=== PATIENT | female | born 1960 | race Caucasian/White ===

== ENCOUNTER 2020-03-31 08:40 | Outpatient (REF) | payer BC, SELFPAY ==
--- NOTE | 2020-03-31 08:44 | MM_ITS ---
EXAMINATION: MM SCREENING DIGITAL BREAST TOMOSYNTHESIS, BILATERAL CLINICAL INFORMATION: Screening. Asymptomatic. The lifetime risk of breast cancer based on the Tyrer-Cuzick Model is 4.6%. COMPARISON: Mammography: March 26, 2019 and studies dating back to August 09, 2011 TECHNIQUE: Digital breast tomosynthesis is performed in both the craniocaudal and mediolateral oblique views along with computer-aided detection (CAD). Synthesized 2D images are generated from the tomosynthesis. FINDINGS: There are scattered areas of fibroglandular density (ACR BI-RADS breast composition Category b). There are no significant masses, abnormal calcifications, or other abnormalities. MM/MM tomosynthesis screening BI IMPRESSION: There are no significant changes from prior study. ASSESSMENT: BI-RADS 1: Negative RECOMMENDATION: Routine annual mammography screening. This patient's information was entered into a reminder system with a target due date for their next mammogram.
== END 2020-03-31 08:41 | disposition home or self-care (01) ==
LOC: HO.MAMMO 08:40
PROVIDERS: PCP Internal Medicine; Visit Provider Internal Medicine
DX: Z12.31 Encounter for screening mammogram for malignant neoplasm of breast (principal)
CPT/HCPCS: 77063; 77067

== ENCOUNTER → 2021-04-06 07:59 | Outpatient (BNVA) | payer BC, SELFPAY | PROVIDERS: Visit Provider Advanced Practice Midwife ==

== ENCOUNTER 2021-04-11 07:14 | Outpatient (REF) | payer BC, SELFPAY ==
--- NOTE | ~2021-04-11 | MM_ITS ---
EXAMINATION: MM SCREENING DIGITAL BREAST TOMOSYNTHESIS, BILATERAL CLINICAL INFORMATION: Screening. Asymptomatic. The lifetime risk of breast cancer based on the Tyrer-Cuzick Model is 6%. COMPARISON: Mammography: 03/31/2020, 03/26/2019, 03/22/2018 TECHNIQUE: Digital breast tomosynthesis is performed in both the craniocaudal and mediolateral oblique views along with computer-aided detection (CAD). Synthesized 2D images are generated from the tomosynthesis. FINDINGS: There are scattered areas of fibroglandular density (ACR BI-RADS breast composition Category b). There are no significant masses, abnormal calcifications, or other abnormalities. Breast tissue composition borders on predominantly fatty. No significant changes. MM/MM tomosynthesis screening BI IMPRESSION: No mammographic evidence of malignancy. ASSESSMENT: BI-RADS 1: Negative RECOMMENDATION: Routine annual mammography screening. This patient's information was entered into a reminder system with a target due date for their next mammogram.
== END 2021-04-11 07:15 | disposition home or self-care (01) ==
LOC: HO.MAMMO 07:14
PROVIDERS: Visit Provider Internal Medicine
DX: Z12.31 Encounter for screening mammogram for malignant neoplasm of breast (principal)
CPT/HCPCS: 77063; 77067

== ENCOUNTER 2021-10-17 09:49 | Outpatient (REF) | payer BC, SELFPAY ==
--- NOTE | ~2021-10-17 | XR_ITS ---
EXAMINATION: XR SHOULDER, RIGHT CLINICAL INFORMATION: Pain. COMPARISON: None TECHNIQUE: Three views of the right shoulder. FINDINGS: There is mild reduction in the AC joint space with periarticular inferior spurring. The glenohumeral joint space is normal. No visible acute fracture, dislocation seen. There is small superior acromial enthesophyte. XR/XR shoulder RT min 2V IMPRESSION: No acute fracture or dislocation. Moderate degenerative spurring AC joint and superior acromial enthesophyte.
== END 2021-10-17 09:50 | disposition home or self-care (01) ==
LOC: HO.HMGCX 09:49
PROVIDERS: PCP Internal Medicine; Visit Provider Physician Assistant
DX: M25.511 Pain in right shoulder (principal)
CPT/HCPCS: 73030

== ENCOUNTER 2022-04-12 08:32 | Outpatient (REF) | payer BC, SELFPAY ==
[2022-04-13 10:12] LABS: BV Int Neg Control Negative (Negative); BV Int Pos Control Positive (Positive)
== END 2022-04-12 08:33 | disposition home or self-care (01) ==
LOC: HO.LNP 08:32
PROVIDERS: Visit Provider Advanced Practice Midwife
DX: N89.8 Other specified noninflammatory disorders of vagina (principal)
CPT/HCPCS: 87480; 87510; 87660

== ENCOUNTER 2022-04-12 11:05 | Outpatient (REF) | payer BC, SELFPAY ==
[2022-04-12 14:10] LABS: MANUAL DIFF FLAG NO
[2022-04-12 14:21] LABS: Basophils Percent Auto 0.6 % (0-2); Eosinophils Absolute Auto 0.6 X10*3/uL (0.0-0.4); Hematocrit 40.3 % (37.0-47.0); Hemoglobin 12.9 g/dl (12.0-16.0); Imm Gran Abs Auto 0.01 X10*3/uL (0.00-0.03); Imm Gran Pct Auto 0.2 % (0.0-0.4); Lymphocytes Absolute Auto 1.6 X10*3/uL (1.2-4.9); Lymphocytes Percent Auto 26.4 % (20-40); Mean Corpuscular Hemoglobin 29.8 pg (27.0-33.0); Mean Corpuscular Volume 93.1 fL (80.0-98.0); Mean Platelet Volume 11.1 fL (9.4-12.3); Monocytes Absolute Auto 0.4 X10*3/uL (0.1-1.2); Monocytes Percent Auto 5.8 % (2-11); Neutrophils Absolute Auto 3.5 x10*3/uL (2.0-8.3); Platelet Count 243 X10*3/uL (160-400); Red Blood Count 4.33 X10*6/uL (4.20-5.50); Red Cell Distribution Width 12.9 % (11.0-16.0); White Blood Count 6.2 X10*3/uL (4.8-10.8)
[2022-04-12 14:43] LABS: Alanine Aminotransferase 13 U/L (0-31); Anion Gap 14 (12-20); Aspartate Amino Transferase 22 U/L (5-31); Blood Urea Nitrogen 20 mg/dL (9-16); Calcium 9.7 mg/dL (8.4-10.2); Carbon Dioxide 25 mmol/L (22-29); Chloride 107 mmol/L (96-108); Cholesterol 251 mg/dL; Estimated Glomerular Filt Rate > 60; Glucose Fasting 81 mg/dL (60-99); HDL Cholesterol 80 mg/dL; LDL Cholesterol Calculated 157 mg/dl; Potassium 4.6 mmol/L (3.3-5.1); Sodium 141 mmol/L (135-145); Triglycerides 73 mg/dL
[2022-04-12 15:36] LABS: Vitamin D 25-OH Total 38.9 ng/mL (>30)
== END 2022-04-12 11:06 | disposition home or self-care (01) ==
LOC: HO.HMGCLDS 11:05
PROVIDERS: PCP Internal Medicine; Visit Provider Internal Medicine
DX: Z00.01 Encounter for general adult medical examination with abnormal findings (principal); G40.209 Localization-related (focal) (partial) symptomatic epilepsy and epileptic syndromes with complex partial seizures, not intractable, without status epilepticus; L21.9 Seborrheic dermatitis, unspecified; R61 Generalized hyperhidrosis; Z78.0 Asymptomatic menopausal state
CPT/HCPCS: 36415; 80048; 80061; 82306; 84450; 84460; 85025

== ENCOUNTER 2022-04-19 07:23 | Outpatient (REF) | payer BC, SELFPAY ==
--- NOTE | ~2022-04-19 | MM_ITS ---
EXAMINATION: MM SCREENING DIGITAL BREAST TOMOSYNTHESIS, BILATERAL CLINICAL INFORMATION: Screening. Asymptomatic. The lifetime risk of breast cancer based on the Tyrer-Cuzick Model is 4%. COMPARISON: Mammography: 04/04/2021, 03/31/2020, 03/26/2019 TECHNIQUE: Digital breast tomosynthesis is performed in both the craniocaudal and mediolateral oblique views along with computer-aided detection (CAD). Synthesized 2D images are generated from the tomosynthesis. FINDINGS: There are scattered areas of fibroglandular density (ACR BI-RADS breast composition Category b). Breast tissue composition borders on predominantly fatty. There are no significant masses, abnormal calcifications, or other abnormalities. Background stromal and fibroglandular densities are stable. No developing density. No skin changes. MM/MM tomosynthesis screening BI IMPRESSION: No mammographic evidence of malignancy. ASSESSMENT: BI-RADS 1: Negative RECOMMENDATION: Routine annual mammography screening. This patient's information was entered into a reminder system with a target due date for their next mammogram.
== END 2022-04-19 07:24 | disposition home or self-care (01) ==
LOC: HO.MAMMO 07:23
PROVIDERS: PCP Internal Medicine; Visit Provider Internal Medicine
DX: Z12.31 Encounter for screening mammogram for malignant neoplasm of breast (principal)
CPT/HCPCS: 77063; 77067

== ENCOUNTER 2022-07-03 08:00 | Outpatient (RCR) | payer BC, SELFPAY ==
--- NOTE | 2022-05-04 09:49 | MHC.PT.EP ---
[facility] [place] Office [place] Office [place] Office [address] Karri Howe [address] [phone] F: [phone] F: [phone] F: [phone] F: [phone] Physical Therapy Plan of Care Date of Evaluation: Date of Surgery: Diagnosis: R Shoulder Pain Assessment: Pt is a 62 y/o female referred to PT for eval and treat of R shoulder pain resulting in decreased tolerance for reaching high shelves, carrying serving trays, dressing pullovers carrying objects of weight and laying on her L side secondary to mild decreased L shoulder ROM, decreased L shoulder strength, decreased scapular posture, and pain. Pt is deemed an appropriate candidate to receive skilled PT services to address their physical impairments in order to improve thier functional ability. Frequency and Duration: The patient will be seen 2 / wk x 4 wks. Short Term Goals: Initiate HEP. Improve baseline pain with activity from 7/10 to < 4/10. 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 Pt will Reports dressing pullovers no longer difficult; initial 3/10. Pt will be able to place objects on a high shelf without pain; initial: 3/10. Improve R shoulder flexion and ER MMT by alt least 1/2 MMT; initial: ER and flexion MT 4/5. Pt will no longer be painful with IR MMT. Treatment Plan: Modalities to reduce pain, spasms and effusion. Manual therapy to restore motion and function. Therapeutic exercise to improve strength and flexibility. Neuromuscular re-education for posture and balance. Therapeutic activities to return to functional activities of daily living. Electronically signed by: Hieu Reyez PT. Please sign and return to therapist. Thank you for your referral.
--- NOTE | 2022-07-03 09:07 | MHC.PT.DC ---
[facility] [place] Office [place] Office [place] Office [address] Karri Howe [address] [phone] F: [phone] F: [phone] F: [phone] F: [phone] Physical Therapy Discharge Report Diagnosis: R Shoulder Pain Date of Surgery: Date of Evaluation: 05/04/22 Date of Discharge: 07/03/22 Treatments to Date: 10 Cancellations to Date: No Shows to Date: Discharge Status: Achieved Goals Improved Function Independent with HEP Discharge Summary: 07/03/22: Lauren has been an active and motivated participant in her therapy in and out of the clinic. We are in agreement with DC today ahe she has met her therapeutic goals, is improved of her function, abolished of her pain, and she is I with her home program. outcome measure SPADI improved from 38% to 0% pain/disability. Electronically signed by: Hieu Reyez PT. Please sign and return to therapist. Thank you for your referral.
== END 2022-07-03 09:08 | disposition home or self-care (01) ==
LOC: HO.PTCHIC 08:00
PROVIDERS: PCP Internal Medicine; Visit Provider Internal Medicine
DX: M25.511 Pain in right shoulder (principal)
CPT/HCPCS: 97110; 97161; 97530

== ENCOUNTER 2022-10-03 09:17 | Outpatient (REF) | payer BC, SELFPAY ==
[2022-10-04 12:35] LABS: BV Int Neg Control Negative (Negative); BV Int Pos Control Positive (Positive)
== END 2022-10-03 09:18 | disposition home or self-care (01) ==
LOC: HO.LAB 09:17
PROVIDERS: PCP Internal Medicine; Visit Provider Advanced Practice Midwife
DX: N89.8 Other specified noninflammatory disorders of vagina (principal)
CPT/HCPCS: 87480; 87510; 87660

== ENCOUNTER 2022-10-18 09:06 | Outpatient (REF) | payer BC, SELFPAY | END 2022-10-18 09:07 | disposition home or self-care (01) | LOC: HO.LAB 09:06 | PROVIDERS: PCP Internal Medicine; Visit Provider Advanced Practice Midwife | DX: N89.8 Other specified noninflammatory disorders of vagina (principal); N94.9 Unspecified condition associated with female genital organs and menstrual cycle | CPT/HCPCS: 87070; 87102; 87147; 87205 ==

== ENCOUNTER → 2022-10-25 12:42 | Outpatient (BNVA) | payer BC, SELFPAY | PROVIDERS: PCP Internal Medicine; Visit Provider Advanced Practice Midwife ==

== ENCOUNTER 2023-03-26 07:17 | Outpatient (AMB) | payer BC, SELFPAY ==
--- NOTE | 2023-03-26 07:35 | A.OFFVIS_ITS ---
Intake Vital Signs 03/26/23 07:37 Height 5 ft 4 in Weight 124 lb BMI 21.3 BP 100/55 L Blood Pressure Location Lt brachial Position Sitting Pulse 62 Intake Visit Reasons: Colonoscopy Screening Intake Note: Patient new consult for 2nd pre colonoscopy screening. Patient denies any GI issues. 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 Accompanied by: Self / Same As Patient Allergies Codeine Phosphate Allergy (Mild, Uncoded 10/25/22 12:43) Itching sulfate Adverse Reaction (Mild, Uncoded 10/25/22 12:43) Itching Medication List - Last Reconciled 03/26/23 by Evelyn Palomares PA-C albuterol sulfate 90 mcg/actuation 2 puffs inhalation Q6-8H PRN aluminum chloride 20% (Drysol Dab-O-Matic) 1 appl topical 2XW betamethasone dipropionate 0.05% 1 appl topical BID PRN 10 days betamethasone, augmented 0.05 % 1 appl topical BID PRN 7 days ibuprofen 800 mg PO Q8H PRN oxcarbazepine mg PO HPI HPI Comments History of Present Illness Details A 63 y/o referred for screening colonoscopy- No GI complaints Normal bowels Appetite is good No family history GI cancers No N/V/D abdominal pain - fever or chills PFSH Medical History (Updated 03/26/23 @ 08:20 by Evelyn Palomares PA-C) Right anterior shoulder pain Seborrheic dermatitis Hyperhidrosis Complex partial seizure disorder Annual visit for general adult medical examination with abnormal findings Hx of partial seizures Surgical History History of intraocular lens implant Hx of tonsillectomy Family History Mother Diabetes HTN (hypertension) Father Diabetes Sister Diabetes Mental health disorder Daughter Mental health disorder Social History Household Members: Spouse Housing: House Alcohol intake: current Alcohol intake frequency: a few times a month Patient Tobacco Use Status: Former Tobacco user Years Smoked: 15 e-Cigarette/Vaping Use: Never Used service: No Current occupational status: employed 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 Sexual orientation: Straight/Heterosexual Gender identity: Female Cognitive needs: No Hearing needs: No Vision needs: No Female Reproductive History Menstrual Age of Menarche: 15 Review of Systems Const All systems reviewed & are unremarkable except as noted in HPI and below Card Denies chest pain and Denies dyspnea Resp Denies dyspnea Physical Exam Vital Signs: Last Vital Signs Pulse 62 03/26/23 07:37 BP 100/55 L 03/26/23 07:37 BMI result Body Mass Index 21.3 Const General: cooperative, healthy appearing, comfortable and no acute distress Orientation/consciousness: patient oriented x3 Limitations: no limitations Eyes Sclerae: sclerae normal Resp Effort & Inspection: normal respiratory effort and able to speak in complete sentences Auscultation: clear to auscultation bilaterally, no rales, no rhonchi and no wheezes Cardio Rate: regular rate Rhythm: regular rhythm Heart sounds: S1 normal heart sound present and S2 normal heart sound present GI Palpation (GI): Soft to palpation and nontender Auscultation: normal bowel sounds Skin General skin exam: no rashes or lesions noted Neuro General: patient oriented x3 Extrem General: Yes full ROM Psych Appearance: grossly normal and well kempt Mental Status: mental status grossly normal Speech and movement: Normal speech and movement present and Clear speech present Affect: normal affect Attitude: cooperative Thought process: Normal thought process present Thought content: Normal thought content present Insight: Good insight present (Psych) Judgement: Good judgement present (Psych) Assessment & Plan Assessment & Plan (1) Encounter for screening colonoscopy: Comment: last colonoscopy-no polyps no fam hx-crc Code(s): Z12.11 - Encounter for screening for malignant neoplasm of colon Plan screening-colonoscopy Orders: Orders Colonoscopy - GI Use Only Today Z12.11 - Encounter for screening for malignant neoplasm of colon Medications: New bisacodyl (Dulcolax (bisacodyl)) Day before procedure, prep day Take 4 tablets by mouth upon awakening followed by large glass of water 20 mg (4 x 5 mg) PO ONCE 1 day 4 tabs 0RF colonoscopy prep Z12.11 - Encounter for screening for malignant neoplasm of colon polyethylene glycol 3350 (Miralax) Take as directed by mouth the day before your procedure. 238 grams PO ONCE 1 day PRN 238 grams 0RF laxative effect polyethylene glycol 3350 (Miralax) Take as directed by mouth the day before your procedure. 238 grams PO ONCE 1 day PRN 238 grams 0RF laxative effect bisacodyl (Dulcolax (bisacodyl)) Day before procedure, prep day Take 4 tablets by mouth upon awakening followed by large glass of water 20 mg (4 x 5 mg) PO ONCE 1 day 4 tabs 0RF colonoscopy prep Z12.11 - Encounter for screening for malignant neoplasm of colon Patient Instructions: Screening colonoscopy- MG prep Call with concerns Coding Level of Care Code New Pt Level 3 (12558) Diagnoses Encounter for screening colonoscopy Z12.11 Time Spent (min) 20
[2023-03-26 07:37] VITALS: BP 100/55; PULSE 62; BMI 21.3
== END 2023-03-26 08:31 | disposition home or self-care (01) ==
PROVIDERS: PCP Internal Medicine; Visit Provider Physician Assistant
DX: Z12.11 Encounter for screening for malignant neoplasm of colon (principal); Z01.818 Encounter for other preprocedural examination
CPT/HCPCS: S0285

== ENCOUNTER → 2023-03-26 07:17 | Outpatient (BNVA) | payer BC, SELFPAY | PROVIDERS: PCP Internal Medicine; Visit Provider Physician Assistant ==

== ENCOUNTER 2023-04-25 07:31 | Outpatient (REF) | payer BC, SELFPAY | END 2023-04-25 07:32 | disposition home or self-care (01) | LOC: HO.MAMMO 07:31 | PROVIDERS: PCP Internal Medicine; Visit Provider Internal Medicine | DX: Z12.31 Encounter for screening mammogram for malignant neoplasm of breast (principal) | CPT/HCPCS: 77063; 77067 ==

== ENCOUNTER → 2023-04-25 07:45 | Outpatient (BNV) | payer BC, SELFPAY | PROVIDERS: PCP Internal Medicine; Visit Provider Radiology Diagnostic Radiology | DX: Z12.31 Encounter for screening mammogram for malignant neoplasm of breast (principal) | CPT/HCPCS: 77063; 77067 ==

== ENCOUNTER 2023-04-25 10:24 | Outpatient (AMB) | payer BC, SELFPAY ==
[2023-04-25 11:46] VITALS: BP 102/74; PULSE 71; O2SAT 99; BMI 22.0
--- NOTE | 2023-04-25 11:46 | MHC.PC.OV ---
Vital Signs 04/25/23 11:46 Height 5 ft 4 in Weight 128 lb 2 oz BMI 22.0 BP 102/74 Blood Pressure Location Lt brachial Position Sitting Pulse 71 Pulse Source Pulse Oximeter Pulse Oximetry (%) 99 Oxygen Delivery Method Room Air Intake Visit Reasons: Annual PE Intake Note: pt is here for her Annual PE pt wants flu vaccine Allergies Codeine Phosphate Allergy (Mild, Uncoded 04/25/23 12:04) Itching sulfate Adverse Reaction (Mild, Uncoded 04/25/23 12:04) Itching Medication List - Last Reconciled 04/25/23 by Leah Fuentes MD albuterol sulfate 90 mcg/actuation 2 puffs inhalation Q6-8H PRN aluminum chloride 20% (Drysol Dab-O-Matic) 1 appl topical 2XW betamethasone dipropionate 0.05% 1 appl topical BID PRN 10 days betamethasone, augmented 0.05 % 1 appl topical BID PRN 7 days bisacodyl (Dulcolax (bisacodyl)) 20 mg (4 x 5 mg) PO ONCE 1 day bisacodyl (Dulcolax (bisacodyl)) 20 mg (4 x 5 mg) PO ONCE 1 day ibuprofen 800 mg PO Q8H PRN oxcarbazepine mg PO polyethylene glycol 3350 (Miralax) 238 grams PO ONCE PRN 1 day polyethylene glycol 3350 (Miralax) 238 grams PO ONCE PRN 1 day Tobacco use date assessed: 04/25/23 Dental Screening Dental Screen Date: 04/25/23 Did you have a dental visit in the last 12 months?: Yes Did you have a dental problem in the last 6 months where you did not have access to dental care?: No Was dental information given to patient?: Patient has dentist [facility] Medical History (Updated 04/25/23 @ 12:13 by Leah Fuentes MD) Hyperlipidemia Right anterior shoulder pain Seborrheic dermatitis Hyperhidrosis Complex partial seizure disorder Annual visit for general adult medical examination with abnormal findings Hx of partial seizures Surgical History (Updated 04/25/23 @ 12:08 by Leah Fuentes MD) History of intraocular lens implant Hx of tonsillectomy Family History Mother Diabetes HTN (hypertension) Father Diabetes Sister Diabetes Mental health disorder Daughter Mental health disorder Social History Household Members: Spouse Housing: House Alcohol intake: current Alcohol intake frequency: a few times a month Patient Tobacco Use Status: Former Tobacco user Years Smoked: 15 e-Cigarette/Vaping Use: Never Used service: No Current occupational status: employed 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 Abdirizak Flaherty, Marilee Borrego, Parrish Potter and colleagues, with an educational leonid from [employer]. Review of Systems Eyes Details: Sees [facility] for her routine eye exam Reports no additional complaints Physical exam (Primary Care) Vital Signs: Last Vital Signs Pulse 71 04/25/23 11:46 BP 102/74 04/25/23 11:46 Pulse Ox 99 04/25/23 11:46 Oxygen Delivery Method Room Air 04/25/23 11:46 BMI result Body Mass Index 22.0 Tobacco/Smoking Status: Tobacco use Status Tobacco use date assessed 04/25/23 04/25/23 11:52 Patient Tobacco Use Status Former Tobacco user 04/25/23 11:46 e-Cigarette/Vaping Use Never Used 04/25/23 11:46 Thrive Assessment: Date of Thrive Assessment Date Thrive assessed 04/12/22 04/25/23 11:46 Office Procedures Flu Questionnaire Does the patient have a severe egg allergy?: No Does the patient have severe life threatening allergies?: No Does the patient have a fever or illness today?: No Has the patient ever had Guillain-[place] Syndrome?: No Has the patient ever had any past reaction to a flu shot?: No Immunizations flu vacc [id number] 6mos up(PF) 60 mcg(15 mcgx4)/0.5 mL IM syringe Performing Provider: Leah Fuentes MD Performing Location: [facility] Administered by: Gale Mejia CMA on 04/25/23 12:09 Dose Route Admin Location Dispensed Lot Number Expiration Date NDC Sander Operator 0.5 mL IM Left Deltoid 0.5 mL [id number] 11/25/23 32605-404-13 MedTest DX VIS Given Date VIS Provided VIS Publication Date 04/25/23 Single Vaccine 20 Eligibility Eligibility Date Funding Source Not [facility] Eligible 04/25/23 Private Assessment and Plan Assessment & Plan (1) Complex partial seizure disorder: Code(s): G40.209 - Localization-related (focal) (partial) symptomatic epilepsy and epileptic syndromes with complex partial seizures, not intractable, without status epilepticus (2) Annual visit for general adult medical examination with abnormal findings: Code(s): Z00.01 - Encounter for general adult medical examination with abnormal findings (3) Seborrheic dermatitis: Code(s): L21.9 - Seborrheic dermatitis, unspecified (4) Hyperhidrosis: Code(s): R61 - Generalized hyperhidrosis (5) Hyperlipidemia: Code(s): E78.5 - Hyperlipidemia, unspecified Orders: Orders Influenza [id number] Immunization Today Z23 - Encounter for immunization Alanine Aminotransferase Today E78.5 - Hyperlipidemia, unspecified, G40.209 - Localization-related (focal) (partial) symptomatic epilepsy and epileptic syndromes with complex partial seizures, not intractable, without status epilepticus, L21.9 - Seborrheic dermatitis, unspecified, R61 - Generalized hyperhidrosis, Z00.01 - Encounter for general adult medical examination with abnormal findings Aspartate Amino Transferase Today E78.5 - Hyperlipidemia, unspecified, G40.209 - Localization-related (focal) (partial) symptomatic epilepsy and epileptic syndromes with complex partial seizures, not intractable, without status epilepticus, L21.9 - Seborrheic dermatitis, unspecified, R61 - Generalized hyperhidrosis, Z00.01 - Encounter for general adult medical examination with abnormal findings Lipid Panel Today E78.5 - Hyperlipidemia, unspecified, G40.209 - Localization-related (focal) (partial) symptomatic epilepsy and epileptic syndromes with complex partial seizures, not intractable, without status epilepticus, L21.9 - Seborrheic dermatitis, unspecified, R61 - Generalized hyperhidrosis, Z00.01 - Encounter for general adult medical examination with abnormal findings Glucose Fasting Today E78.5 - Hyperlipidemia, unspecified, G40.209 - Localization-related (focal) (partial) symptomatic epilepsy and epileptic syndromes with complex partial seizures, not intractable, without status epilepticus, L21.9 - Seborrheic dermatitis, unspecified, R61 - Generalized hyperhidrosis, Z00.01 - Encounter for general adult medical examination with abnormal findings Vitamin D 25-OH Total Today E78.5 - Hyperlipidemia, unspecified, G40.209 - Localization-related (focal) (partial) symptomatic epilepsy and epileptic syndromes with complex partial seizures, not intractable, without status epilepticus, L21.9 - Seborrheic dermatitis, unspecified, R61 - Generalized hyperhidrosis, Z00.01 - Encounter for general adult medical examination with abnormal findings Medications: New betamethasone dipropionate 0.05% 1 appl topical DAILY PRN 60 mL 0RF scalp irritation Refilled betamethasone dipropionate 0.05% 1 appl topical BID PRN 45 grams 0RF rash 10 days aluminum chloride 20% (Drysol Dab-O-Matic) 1 appl topical 2XW 60 mL 2RF ibuprofen PRN for pain 800 mg PO Q8H PRN 90 tabs 0RF pain Coding Level of Care Code Est Pt Prev Care 40-64y(94731) Diagnoses Complex partial seizure disorder G40.209 Annual visit for general adult medical examination with abnormal findings Z00.01 Seborrheic dermatitis L21.9 Hyperhidrosis R61 Hyperlipidemia E78.5
== END 2023-04-25 12:22 | disposition home or self-care (01) ==
PROVIDERS: Visit Provider Internal Medicine
DX: Z23 Encounter for immunization (principal)
CPT/HCPCS: 90471; 90686

== ENCOUNTER 2023-04-25 12:23 | Outpatient (REF) | payer BC, SELFPAY ==
[2023-04-25 14:21] LABS: Alanine Aminotransferase 15 U/L (0-31); Aspartate Amino Transferase 22 U/L (5-31); Cholesterol 229 mg/dL (<200); Glucose Fasting 77 mg/dL (60-99); HDL Cholesterol 86 mg/dL (>40); LDL Cholesterol Calculated 128 mg/dL (<100); Triglycerides 79 mg/dL (<150)
[2023-04-25 14:22] LABS: Vitamin D 25-OH Total 38.4 ng/mL (>30)
== END 2023-04-25 12:24 | disposition home or self-care (01) ==
LOC: HO.HMGCLDS 12:23
PROVIDERS: PCP Internal Medicine; Visit Provider Internal Medicine
DX: Z00.01 Encounter for general adult medical examination with abnormal findings (principal); G40.209 Localization-related (focal) (partial) symptomatic epilepsy and epileptic syndromes with complex partial seizures, not intractable, without status epilepticus; R61 Generalized hyperhidrosis; E78.5 Hyperlipidemia, unspecified; L21.9 Seborrheic dermatitis, unspecified
CPT/HCPCS: 36415; 80061; 82306; 82947; 84450; 84460

== ENCOUNTER 2023-08-01 10:45 | Day surgery (SDC) | payer BC, SELFPAY ==
--- NOTE | 2023-07-31 09:59 | HO.ANESPROP2 ---
Documented by User: Marilee Moulton NP 07/31/23 10:00 HPI - Anesthesia Eval Consult details Narrative: 63yo F for Colonoscopy PMFSH Active Problems Active Problems: All Active Problems (Updated 04/25/23 @ 12:13 by Leah Fuentes MD) Hyperlipidemia (Acute) Encounter for screening colonoscopy (Acute) Right anterior shoulder pain (Acute) Seborrheic dermatitis (Acute) Hyperhidrosis (Acute) Complex partial seizure disorder (Acute) Annual visit for general adult medical examination with abnormal findings (Acute) Past Medical History Medical History (Updated 08/01/23 @ 12:49 by Jelena Alanis RN) Hyperlipidemia Right anterior shoulder pain Seborrheic dermatitis Hyperhidrosis Complex partial seizure disorder Annual visit for general adult medical examination with abnormal findings Hx of partial seizures Family History Family History Mother Diabetes HTN (hypertension) Father Diabetes Sister Diabetes Mental health disorder Daughter Mental health disorder Surgical History Surgical History (Updated 04/25/23 @ 12:08 by Leah Fuentes MD) History of intraocular lens implant Hx of tonsillectomy Social History Social History Household Members: Spouse Housing: House Alcohol intake: current Alcohol intake frequency: holidays/special occasions only Patient Tobacco Use Status: Former Tobacco user Years Smoked: 15 e-Cigarette/Vaping Use: Never Used Use of substances other than those prescribed or required for medical reasons: No Are you DNR?: No Advance Directives: No Advance Directives Information Provided: Yes service: No Current occupational status: employed 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 Sexual orientation: Straight/Heterosexual Gender identity: Female Cognitive needs: No Hearing needs: No Vision needs: No Meds Allergies Allergy/AdvReac Type Severity Reaction Status Date / Time Codeine Phosphate Allergy Mild Itching Uncoded 04/25/23 12:04 sulfate AdvReac Mild Itching Uncoded 04/25/23 12:04 Home Medications Medication Instructions Recorded Confirmed Last Taken Type oxcarbazepine 150 mg tablet mg PO 03/31/20 04/25/23 08/01/23 History Assessment and Plan Assessment Anesthesia Assessment: Chart Reviewed Documented by User: Mercy Le MD 08/01/23 12:56 PMFSH Past Medical History Medical History (Updated 08/01/23 @ 12:49 by Jelena Alanis RN) Hyperlipidemia Right anterior shoulder pain Seborrheic dermatitis Hyperhidrosis Complex partial seizure disorder Annual visit for general adult medical examination with abnormal findings Hx of partial seizures Family History Family History Mother Diabetes HTN (hypertension) Father Diabetes Sister Diabetes Mental health disorder Daughter Mental health disorder Family history of problems with anesthesia: No Surgical History Surgical History (Updated 04/25/23 @ 12:08 by Leah Fuentes MD) History of intraocular lens implant Hx of tonsillectomy History of Problems with Anesthesia: No Social History Social History Household Members: Spouse Housing: House Alcohol intake: current Alcohol intake frequency: holidays/special occasions only Patient Tobacco Use Status: Former Tobacco user Years Smoked: 15 e-Cigarette/Vaping Use: Never Used Use of substances other than those prescribed or required for medical reasons: No Are you DNR?: No Advance Directives: No Advance Directives Information Provided: Yes service: No Current occupational status: employed 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 Sexual orientation: Straight/Heterosexual Gender identity: Female Cognitive needs: No Hearing needs: No Vision needs: No Meds Allergies Allergy/AdvReac Type Severity Reaction Status Date / Time Codeine Phosphate Allergy Mild Itching Uncoded 04/25/23 12:04 sulfate AdvReac Mild Itching Uncoded 04/25/23 12:04 Home Medications Medication Instructions Recorded Confirmed Last Taken Type oxcarbazepine 150 mg tablet mg PO 03/31/20 04/25/23 08/01/23 History Exam Airway Mallampati Class: II TM Dist: >3cm Neck ROM: Full Heart: rrr Lungs: cta Assessment and Plan Assessment Anesthesia Assessment: Anesthesia Plan Discussed Final Anesthetic Review Family History of Problems with Anesthesia: No History of Problems with Anesthesia: No NPO: Yes ASA Class: II Final Preanesthetic Review: No Changes in Pt Med Stat, Meds/Allgs Chart Reviewed and Consent Obtained/Reviewed Patient Risk: Low Procedure Risk: Low Anesthetic Plan Anesthetic Plan: MAC: Disposition: Standard PACU
[2023-08-01 12:50] VITALS: BMI 21.5
[2023-08-01 12:59] VITALS: BP 118/70; PULSE 58; RESP 16; TEMP 37; O2SAT 98
--- NOTE | 2023-08-01 12:59 | MHC.SHP ---
Pre-Procedural Eval Section A - 24 Hr Update-Section A only Date of Service: 08/01/23 Section B - Complete if H&P > 30 days Chief Complaint: screening Relevant Family History (Specify if Yes): No Relevant Social History: None Present Medications: see Short Stay Collaborative assessment Medical History: Significant History (Hyperlipidemia Right anterior shoulder pain Seborrheic dermatitis Hyperhidrosis Complex partial seizure disorder Annual visit for general adult medical examination with abnormal findings Hx of partial seizures) History of Previous Operations: Relevant previous surgery/procedure and date(s) (History of intraocular lens implant Hx of tonsillectomy) Allergies: Allergies Allergy/AdvReac Type Severity Reaction Status Date / Time Codeine Phosphate Allergy Mild Itching Uncoded 04/25/23 12:04 sulfate AdvReac Mild Itching Uncoded 04/25/23 12:04 Review of Systems Sugical H&P ROS: Negative: Constitution, Cardiovascular, Respiratory, Neurological, Psychiatric, Hem-Onc, Allergic/Immunologic, Gastrointestinal, Genitourinary, Musculoskeletal, Integumentary, Endocrine and Eyes/Ears/Nose/Throat Exam Surgical H&P Exam: Normal: HEENT, Normal: Heart, Normal: Lungs, Normal: Extremities, Normal: Abdomen, Normal: Skin and Normal: Neurological Plan Diagnosis/Plan: Unchanged I have reviewed the history and physical and performed a pertinent physical examination on my patient. No changes have occurred unless specified. Time Spent With Patient Time: Total time managing care of this patient today ____ minutes.
[2023-08-01] MEDS: Lactated Ringers 1,000 ML 100 ML IVCONT (13:11)
[2023-08-01 13:50] VITALS: BP 93/53; PULSE 70; RESP 16; TEMP 36.2; O2SAT 95
[2023-08-01 14:05] VITALS: BP 98/61; PULSE 58; RESP 16; O2SAT 97
[2023-08-01 14:20] VITALS: BP 103/59; PULSE 50; RESP 16; TEMP 36.3; O2SAT 98
--- NOTE | 2023-08-10 14:43 | W.PM.OPN ---
Operative Note Operative Note Date of Service: 08/01/23 Narrative: Operative Information Procedure Description: Colonoscopy Indication: screening Anesthesia: MAC COLONOSCOPY Instrument: Olympus variable stiffness pediatric scope 190L Colonoscopy Monitoring: Vital signs and clinical assessment, continuous EKG monitoring, Pulse oximetry, Carbon Dioxide monitoring and blood pressure monitoring were done throughout the procedure. Colon withdrawal time was 7 minutes. Procedure: The patient was placed in the left lateral decubitis position and pre-procedure medications were administered. After a digital rectal examination of the ano-rectum, the video colonoscope was inserted into the rectum and advanced through the colon to the cecum/TI. The colonoscope was slowly withdrawn in a retrograde panoramic fashion and the colon mucosa was carefully examined including a retroflexed view of the rectum. Findings and interventions are described below. Procedure Difficulty: easy Findings: Terminal Ileum-normal Cecum:normal Ascending Colon: normal Transverse Colon -normal Descending Colon:normal Sigmoid Colon: normal Rectum: Retroflexion with small internal hemorrhoids seen, grade I Anorectum - normal Intervention: none Colon preparation: [place] Bowel Preparation Scale Right colon; 2 Transverse colon: 2 Left colon; 2 (0 = Unprepared colon segment with mucosa not seen due to solid stool that cannot be cleared. 1 = Portion of mucosa of the colon segment seen, but other areas of the colon segment not well seen due to staining, residual stool and/or opaque liquid. 2 = Minor amount of residual staining, small fragments of stool and/or opaque liquid, but mucosa of colon segment seen well. 3 = Entire mucosa of colon segment seen well with no residual staining, small fragments of stool or opaque liquid) Impression and Post Procedure Diagnosis: internal hemorrhoids Plan: High fiber diet leaflet Avoid straining at stool, epsom salts and sitz bath, anusol supps or cream Repeat Colonoscopy in 10 years or earlier if clinically indicated Above findings were reviewed with the patient and relevant handouts were provided if indicated.
== END 2023-08-01 15:30 | disposition home or self-care (01) ==
PROVIDERS: PCP Internal Medicine; Visit Provider Internal Medicine Gastroenterology
PROC: 0DJD8ZZ Inspection of Lower Intestinal Tract, Via Natural or Artificial Opening Endoscopic (ICD-10-PCS; CPT 45378; principal; 2023-08-01 13:00)
DX: Z12.11 Encounter for screening for malignant neoplasm of colon (principal); K64.0 First degree hemorrhoids; E78.5 Hyperlipidemia, unspecified; G40.209 Localization-related (focal) (partial) symptomatic epilepsy and epileptic syndromes with complex partial seizures, not intractable, without status epilepticus; Z87.891 Personal history of nicotine dependence
CPT/HCPCS: 45378

== ENCOUNTER → 2023-08-01 10:45 | Outpatient (BNV) | payer BC, SELFPAY | PROVIDERS: PCP Internal Medicine; Visit Provider Internal Medicine Gastroenterology | DX: Z12.11 Encounter for screening for malignant neoplasm of colon (principal); K64.0 First degree hemorrhoids | CPT/HCPCS: 45378 ==

== ENCOUNTER 2023-08-22 13:50 | Outpatient (REF) | payer BC, SELFPAY ==
[2023-08-28 21:14] LABS: HPV mRNA E6/E7 rflx Not Detected (Not Detected)
== END 2023-08-22 13:51 | disposition home or self-care (01) ==
LOC: HO.LNP 13:50
PROVIDERS: PCP Internal Medicine; Visit Provider Advanced Practice Midwife
DX: Z01.419 Encounter for gynecological examination (general) (routine) without abnormal findings (principal); Z11.51 Encounter for screening for human papillomavirus (HPV)
CPT/HCPCS: 87624; 88142

== ENCOUNTER 2023-08-22 13:50 | Outpatient (AMB) | payer BC, SELFPAY ==
--- NOTE | 2023-08-22 13:56 | MHC.OFFVIS ---
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 She is doing well with no concerns. Attempting to eat a healthy diet with calcium and vitamin D and stays active with exercise. Currently occasional sexually active. Denies any vaginal irritation. Uses a small amount of Vaseline externally for dryness has discontinued the Replens. Last pap smear; 2017. Last mammogram; 2022. Colonoscopy is UTD. Denies any family history of breast, ovarian or colon cancer. [facility] Medical History Hyperlipidemia Right anterior shoulder pain Seborrheic dermatitis Hyperhidrosis Complex partial seizure disorder Annual visit for general adult medical examination with abnormal findings Hx of partial seizures Surgical History History of intraocular lens implant Hx of tonsillectomy Family History Mother Diabetes HTN (hypertension) Father Diabetes Sister Diabetes Mental health disorder Daughter Mental health disorder Social History Household Members: Spouse Housing: House Alcohol intake: current Alcohol intake frequency: holidays/special occasions only Patient Tobacco Use Status: Former Tobacco user Years Smoked: 15 e-Cigarette/Vaping Use: Never Used service: No Current occupational status: employed 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 Sexual orientation: Straight/Heterosexual Gender identity: Female Cognitive needs: No Hearing needs: No Vision needs: No Female Reproductive History Menstrual Age of Menarche: 15 Total pregnancies: 1 Full term: 1 Number of Living Children: 1 Date of last pap smear: 01/15/18 (neg pap and hpv) Date of Mammogram: 04/25/23 (Birad 1) Review of Systems Const All systems reviewed & are unremarkable except as noted in HPI and below Reports as per HPI Eyes Reports no additional complaints ENT Reports no additional complaints Card Reports no additional complaints Resp Reports no additional complaints GI Reports as per HPI and Reports no additional complaints Reports as per HPI Musc Reports no additional complaints Skin/Breast Reports as per HPI Neuro Reports no additional complaints Psych Reports no additional complaints Endo Reports no additional complaints Casimiro/Lymph Reports no additional complaints Aller/Immun Reports no additional complaints Physical Exam Vital Signs: Last Vital Signs BP 102/62 08/22/23 13:57 BMI result Body Mass Index 21.6 Const General: cooperative, healthy appearing, no acute distress, well developed and alert Orientation/consciousness: patient oriented x3 HEENT Head: Yes normal to inspection Eyes General: appearance normal, both eyes and all related structures Neck Neck: Yes normal visual inspection Thyroid: Thyroid normal Chest Chest palpation & inspection: normal inspection of the chest and other (no puckering, dimpling, peau de orange, retraction, discharge, masses) Breast/axilla inspection: normal inspection of the breasts Breast/axilla palpation: normal palpation of the breasts Resp Effort & Inspection: normal respiratory effort GI Inspection: Yes normal to inspection Palpation (GI): Soft to palpation Rectal Exam - Female: deferred General: Yes bladder normal to palpation External Female Exam: normal external appearance and normal appearance of the urethra Speculum Exam - Vagina: normal appearance of the vagina, normal palpation, normal vaginal discharge and vagina atrophic Speculum Exam - Cervix: normal appearance of the cervix, normal palpation and Other cervical findings present (Bled slightly with Pap) Bimanual exam- vagina & uterus: normal bimanual exam, normal palpation, uterine size normal, bladder normal to palpation, normal palpation and non-tender Bimanual Exam- Adnexa, other: no masses Skin General skin exam: no rashes or lesions noted Rashes: no rashes Neuro General: patient oriented x3 Cognition (Neuro): normal cognition Extrem General: Yes normal to inspection Psych Attitude: cooperative Thought process: Normal thought process present Assessment & Plan Assessment & Plan (1) Encounter for well woman exam with routine gynecological exam: Code(s): Z01.419 - Encounter for gynecological examination (general) (routine) without abnormal findings Plan Discussed: Current recommendations for pap smears per ASCCP guidelines. Breast awareness, periodic self breast exams and yearly mammogram. Maintain a healthy lifestyle, well balanced diet including Calcium 1,200 mg and Vitamin D 600 IU daily, and routine exercise. Options for atrophic changes externally and internally, can op if no risk factors for estrogen therapy also in the future. Contact the office with any postmenopausal bleeding. Patient verbalizes understanding and agrees to the plan of care. She was given opportunity to ask questions and all questions were answered to the best of my ability. 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 This note is constructed using voice recognition software. While every effort has been made to ensure accuracy, shipyard helper errors may have been included. Coding Level of Care Code Est Pt Prev Care 40-64y(61273) Diagnoses Encounter for well woman exam with routine gynecological exam Z01.419
[2023-08-22 13:57] VITALS: BP 102/62; BMI 21.6
== END 2023-08-22 14:30 | disposition home or self-care (01) ==
PROVIDERS: PCP Internal Medicine; Visit Provider Advanced Practice Midwife
DX: Z01.419 Encounter for gynecological examination (general) (routine) without abnormal findings (principal)
CPT/HCPCS: 99396

== ENCOUNTER 2023-10-17 08:12 | Outpatient (AMB) | payer BC, SELFPAY ==
[2023-10-17 08:14] VITALS: BP 118/62; PULSE 62; TEMP 36.7; O2SAT 98; BMI 20.8
--- NOTE | 2023-10-17 08:14 | AM.OFFWIN_ITS ---
Intake Vital Signs 3 10/17/23 08:14 Height 5 ft 4 in Weight 121 lb BMI 20.8 BP 118/62 Blood Pressure Location Rt brachial Position Sitting Pulse 62 Pulse Source Pulse Oximeter Temp 98.0 F Temp Source Temporal Artery Scan Pulse Oximetry (%) 98 Oxygen Delivery Method Room Air Intake Visit Reasons: EP toenail fungus lft foot Intake Note: pt is here for toenail fungus on left foot Patient Tobacco Use Status: Former Tobacco user Allergies Codeine Phosphate Allergy (Mild, Uncoded 10/17/23 08:15) Itching sulfate Adverse Reaction (Mild, Uncoded 10/17/23 08:15) Itching Medication List - Last Reconciled 10/17/23 by India Mullins MD albuterol sulfate 90 mcg/actuation 2 puffs inhalation Q6-8H PRN aluminum chloride 20% (Drysol Dab-O-Matic) 1 appl topical 2XW ibuprofen 800 mg PO Q8H PRN oxcarbazepine mg PO Do you need a note to return to daycare/school/sports/work: No HPI EP toenail fungus lft foot 2 HPI0 Details Patient is 63-year-old female came in today to be evaluated for toenail deformity left Patient says that she has had a discolored toenail which has fallen off yesterday She still have nail bed intact. I have placed referral to Podiatry Meanwhile I have sent ketoconazole 2% cream that she needs to start using. On examination there is no pain there is no discharge. [facility] Medical History Hyperlipidemia Right anterior shoulder pain Seborrheic dermatitis Hyperhidrosis Complex partial seizure disorder Annual visit for general adult medical examination with abnormal findings Hx of partial seizures Surgical History History of intraocular lens implant Hx of tonsillectomy Family History Mother Diabetes HTN (hypertension) Father Diabetes Sister Diabetes Mental health disorder Daughter Mental health disorder Social History Household Members: Spouse Housing: House Alcohol intake: current Alcohol intake frequency: holidays/special occasions only Patient Tobacco Use Status: Former Tobacco user Years Smoked: 15 e-Cigarette/Vaping Use: Never Used service: No Current occupational status: employed 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 Sexual orientation: Straight/Heterosexual Gender identity: Female Cognitive needs: No Hearing needs: No Vision needs: No Female Reproductive History Menstrual Age of Menarche: 15 Review of Systems Const All systems reviewed & are unremarkable except as noted in HPI and below Physical Exam Vital Signs: Last Vital Signs Temp 98.0 F 10/17/23 08:14 Pulse 62 10/17/23 08:14 BP 118/62 10/17/23 08:14 Pulse Ox 98 10/17/23 08:14 Oxygen Delivery Method Room Air 10/17/23 08:14 BMI result Body Mass Index 20.8 Const General: no acute distress Orientation/consciousness: patient oriented x3 Eyes General: appearance normal, both eyes and all related structures Resp Effort & Inspection: normal respiratory effort and able to speak in complete sentences Neuro General: patient oriented x3 Extrem Ankle/foot/toe images: 2 1. 2 mm of nail bed is intact rest of the nail has fallen off, there is no pain with palpation there is no discharge Psych Mental Status: mental status grossly normal Assessment & Plan Assessment & Plan (1) Onychomycosis: Code(s): B35.1 - Tinea unguium Plan Patient is 63-year-old female came in today to be evaluated for toenail deformity left Patient says that she has had a discolored toenail which has fallen off yesterday She still have nail bed intact. I have placed referral to Podiatry Meanwhile I have sent ketoconazole 2% cream that she needs to start using. On examination there is no pain there is no discharge. Orders: Referrals 2 Podiatry Referral B35.1 - Tinea unguium Medications: New 2 ketoconazole 2% 1 appl topical BID 60 grams 0RF Coding Level of Care Code Est Pt Level 3 (09306) Diagnoses Onychomycosis B35.1
== END 2023-10-17 09:04 | disposition home or self-care (01) ==
PROVIDERS: PCP Internal Medicine; Visit Provider Internal Medicine
DX: B35.1 Tinea unguium (principal)
CPT/HCPCS: 99213

== ENCOUNTER 2024-04-30 07:33 | Outpatient (REF) | payer BC, SELFPAY ==
--- NOTE | ~2024-04-30 | MM_ITS ---
EXAMINATION: MM SCREENING DIGITAL BREAST TOMOSYNTHESIS, BILATERAL CLINICAL INFORMATION: Screening. Asymptomatic. COMPARISON: Mammography: Comparison is made with available priors TECHNIQUE: Digital breast mammography with tomosynthesis is performed in both the craniocaudal and mediolateral oblique views along with computer-aided detection (CAD). FINDINGS: There are scattered areas of fibroglandular density (ACR BI-RADS breast composition Category b). There are no significant masses, abnormal calcifications, or other abnormalities. MM/MM tomosynthesis screening BI IMPRESSION: No mammographic evidence of malignancy. ASSESSMENT: BI-RADS BI-RADS 1 - Negative RECOMMENDATION: Routine annual mammography screening. 1 year F/U This examination should not preclude the clinical evaluation of a suspicious palpable abnormality. This patient's information was entered into a reminder system with a target due date for their next mammogram. Electronically signed by: Gloria Shepard DO 05/06/2024 09:29 AM DARCY
--- OUTSIDE RECORDS SUMMARY | 2024-05-06 16:17 | XMS_ITS ---
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 Generated for Printi ng/Faphyllisg/eTransmitting on:?05/06/2024 04:16 PM EST
--- OUTSIDE RECORDS SUMMARY | 2024-05-06 16:17 | XMS_ITS | Patient Health Record ---
Author Organization [facility] Bob Paezley Address [address] [place] [address] Care Team Providers Care Bead Picker Name Role Phone Alfredo AKERS, Leah Gonzales Primary Care Provider Un available Paul Fox Unavailable [phone] Allergies Allergen (clinical drug ingredient) Drug/Non Drug Allergy documented on EMR Reaction Allergy Type Onset Date Status codeine Codeine itchy / rash Drug Allergy Acti ve Reason For Referral Diagnosis 1 Pain in unspecified foot (M79.673) Referring Provider First Name Leah Soto Referring Provider Last Name Alfredo Referring Provider Speciality Internal M edicine [facility] Referred Provider Paul Fox Referred Address [address],[place],[address], Referred Provider Specialty Podiatry Referral Priority Routine Medications Medication SIG (Take, Route, Fr equency, Duration) Notes Start Date End Date Status OXcarbazepine 150 MG Oral for 90 Days Active Ketoconazole 2 % 1 application Improvement Coordinator ally Once a day for 30 days 01/23/2024 Active Social History Tobacco Use: Social History Observation Description Date Details (start date - stop date) Former Smoker NA - NA Tobacco Use/Smoking Question Answer Notes Are you a: former smoker Additional Findings: Tobacco Non-User Current no n-smoker Alcohol Screen Question Answer Notes Did you have a drink containing alcohol in the p ast year? Yes Points 0 Interpretation Negative Tobacco use other than smoking: Question Answer Notes Are you an other tobacco user? No Vital Signs Height 5 ft 4 in in 01/23/2024 Weight 121 lbs lbs 01/23/2024 BMI 20.77 kg/m2 01/23/2024 Encounters Encounter Location Date Provider [facility] [address] [place] [address] 01/23/2024 Paul Fox Skin disease L98.9 ; Tinea unguium B35.1 and Ingrowing nail L60.[address] [facility] [address] 10/18/2023 Paul Fox Assessments Encounter Date Diagnosis (ICD Code) Assessment Notes Treatment Notes Treatment Clinical Notes Section Notes 01/23/2024 Tinea unguium (ICD-10 - B35.1) 01/23/2024 Skin disease (ICD-10 - L98.9) 01/23/2024 Ingrowing nail (ICD-10 - L60.0) Plan Of Treatment No Information Insurance Providers Payer Name Payer Address Payer Phone Subscriber Number Group Number Insured Name Patient Relationship to Insured Coverage Start Date Coverage End Date [facility] [address] [place] [address] [id number] Jose Daniel Cerda Spouse - patient is the spouse of the insured Medical (General) History Medical History History ICD Code Anxiety asthma Back,Hip,and Knee pain covid-19 Chicken pox Surgical History Surgery Date(Month/Year) tonsillectomy childhood
--- OUTSIDE RECORDS SUMMARY | 2024-05-06 16:17 | XMS_ITS ---
Author Organization [facility] Address [address] [place] [address] Care Team Providers Care Flat Clothier Name Role Phone Alfredo AKERS, Leah Gonzales Primary Care Provider Un available Paul Fox Unavailable [phone] Allergies Allergen (clinical drug ingredient) Drug/Non Drug Allergy documented on EMR Reaction Allergy Type Onset Date Status codeine Codeine itchy / rash Drug Allergy Acti ve REASON FOR VISIT Last PCP Visit: 09/2023, Skin problem Medications Medication SIG (Take, Route, Fr equency, Duration) Notes Start Date End Date Status OXcarbazepine 150 MG Oral for 90 Days Active Ketoconazole 2 % 1 application Yard Inspector ally Once a day for 30 days [...] 01/23/2024 Encounters Encounter Location Date Provider Diagnosis [facility] [place] Paez[address] [facility] [address] 01/23/2024 Paul Fox Skin disease L98.9 ; Tinea unguium B35.1 and Ingrowing nail L60.0 Assessments Encounter Date Diagnosis (ICD Code) Assessment Notes Treatment Notes Treatment Clinical Notes Section Notes 01/23/2024 Skin disease (ICD-10 - L98.9) 01/23/2024 Tinea unguium (ICD-10 - B35.1) 01/23/2024 Ingrowing nail (ICD-10 - L60.0) Plan Of Treatment Medication Medication Name Sig Start Date Stop Date Notes Ketoconazole 2 % 1 application Yard Inspector ally Once a day for 30 days 01/23/2024 Next Appt Details Follow Up: prn, Reason: Progress Notes * Isabel CERDAkeenanDOB: [birth year] (63 yo F)Acc No.[id number]:01/23/2024 Progress Notes Patient:?Lauren Cerda Provider:?Paul Fox DPM :1960???Age:63 Y???Sex:Female D ate:01/23/2024 Address:[address] [place] [address] , [facility] Pcp:Richar Bird Subjective: * Chief Complaints: * ??? Last PCP Visit: 09/2023Sk in problem * HPI: ???Skin problems:?Nature:?discolored.?Location:?Left , 1st.?Duration:?a year or more.?Course:?improved.?Treatments:?Topical antifungal--ketoconazole cream.?Severity/Quality:?mild.? * ROS:?General/Constitutional:?Nausea?denies.?Vomiting?denies.?Hunger Thirst?denies.?Loss appetite?denies.?Chills?denies.?Fatigue?denies.?Fever?denies.?Night Sweats?denies.?Unexplained weight loss?denies.?Unexplained weight gain?denies.?HEENTM:?Dentures?denies.?Dizziness?denies.?Glasses/contacts?denies.?Retinopathy?de nies.?Blurred/double vision?denies.?TMJ?denies.?Discharge/drainage?denies.?Implants?denies.?Sore throat?denies.?Dental implants?denies.?Hard of hearing ?denies.?Difficulty chewing/swallowing/speaking?denies.?Nose bleeds?denies.?Sore mouth?denies.?Respiratory:?On Oxygen?denies.?Pneumonia/pleurisy?denies.?Bronchitis?denies.?Emphysema?denies.?C oughing?denies.?Cough blood?denies.?Shortness of breath?denies.?Wheezing?denies.?Cardiovascular:?Pacemaker?denies.?MVP?denies.?WPW?denies.?CHF?denies.?Heart attack?denies.?Septal defect?denies.?Rapid beat?denies.?Chest pain ?denies.?Atrial Fib.?denies.?Murmur/Palpitations?denies.?Gastrointestinal:?Hemorrhoids?denies.?Stomach/Abdominal pain?denies.?Dark blood stool?denies.?Irritable bowel ?denies.?Constipation?denies.?Diarrhea?denies.?Hematology:?Swelling?denies.?Clots?denies.?Varicose Veins?denies.?Bruising?denies.?Bleeding problem?denies.?Genitourinary:?Blood urine?denies.?Frequent/Painfu/urination/bladder control?denies.?Kidney stones?denies.?Infection (UTI)?denies.?Nephropathy?denies.?sex trans dis (STD)?denies.?Prostate?denies.?Musculoskeletal:?Hammertoes?denies.?Bunions?denies.?Back Pain?denies.?Muscle Cramps/ Resting?denies.?Muscle cramps / walking?denies.?Generalized aches and pains?denies.?Weakness?denies.?Integ.:?Tao?denies.?Scars?denies.?Corns/calluses?denies.?Ingrown nails?denies.?Painful nails?denies.?Open Sores?denies.?Rashes?denies.?Neurologic:?Difficulty sleeping?denies.?Brain disorder?denies.?Numbness?denies.?Balance trouble?denies.?Confusion?denies.?Fainting/blackouts?denies.?Tingling?denies.?Tr emors?denies.? * Medical History:? * Surgical History:?tonsillect viraj childhood * Hospitalization/Major Diagno stic Procedure:?Denies Past Hospitalization * Family History:?Mother: dece ased, diagnosed with Diabetic - NIDDM, Unspecified essential hypertension.?Father: , diagnosed with Diabetic - NIDDM.?Siblings: diagnosed with Diabetic - NIDDM.? * Social History:?Tobacco Use:?Tobacco Use/Smoking?Are you a:?former smoker ?Additional Findings: Tobacco Non-User?Current non-smoker ?Tobacco use other than smoking?Are you an other tobacco user??No ???Drugs/Alcohol:?Drugs?Have you used drugs other than those for medical reasons in the past 12 months??No ?Alcohol Screen?Did you have a drink containing alcohol in the past year??Yes ?Points?0 ?Interpretation?Negative ???Miscellaneous:?no Caffeine. ?Children: yes, 1. ?Exercise: walking. ?Marital status: . * Medications:?TakingOXcarbaze pine 150 MG Tablet Oral Medication List reviewed and reconciled with the patientTaking OXcarbazepine 150 MG Tablet Oral Medication List reviewed and reconciled with the patient * Allergies:?Codeine: itchy / rashyes[Allergies Verified] Objective: * Vitals:?Ht: 5 ft 4 in, Wt:12 1 lbs, BMI:20.77, Shoe size: 7, Ht-cm: 162.56 cm, Wt-k.88 kg. * Examination: ???General Examination: ?GENERAL APPEARANCE:?pleasant, alert, well nourished, well developed, well hydrated, with good attention to hygene/body habitus, and in no acute distress.?ORIENTED:?person,place, and time.?Neurological: ?SENSORY:?neurological exam reveals intact sensorium, pain sensation normal, vibration sensation intact, pinprick sensation is normal in the lower extremities, anesthesia, burning, tingling, B/L.?Vascular: ?DP PULSES:?2/4, B/L.?PT PULSES:?2/, B/L.?CAPILLARY FILL TIME:?3 secs. per digit. B/L.?SKIN TEMPERTURE GRADIENT OF THE LOWER EXTERMITIES:?normal, B/L.?HAIR GROWTH/TEXTURE/ELASTICITY/TURGOR:?normal, B/L.?PIGMENTATION:?normal, B/L.?EDEMA:?absent, B/L.?TELANGECTASIA:?absent, B/L.?Dermatologic: ?SKIN FINDINGS:?Skin exam reveals normal texture, elasticity, and tugor. There are no masses. The interspaces are clear.?Orthopedic: ?MUSCLE STRENGTH:?5/5 all groups in a symmetrical fashion , B/L.?Ingrown Nail: ?INSPECTION:? Reveals nail incurvation, pain on palpation, groove hypertrophy, groove ischemia, Bilateral nail borders, TA.?Nails: ?NAILS are:? Elongated, overgrown, dystrophic, lytic, greater than 3mm thick, discolored and friable with crumbly malodorous subungual debris, TA--meidal nail border.? Assessment: * Assessment: 1.?Tinea unguium - B35.1?2.? Skin disease - L98.9 (Primary)?3.?Ingrowing nail - L60.0? Plan: * Treatment: * Procedure Codes:? * Preventive Medicine:? ??Counseling:?Discussion:?-03: Office or other outpatient visit for the evaluation and management of a new patient, which required a medically appropriate history and/or examination and LOW level of DECISION MAKING for: 1 STABLE ACUTE UNCOMPLICATED PROBLEM, 2 OR MORE MINOR PROBLEMS, OR 1 STABLE CHRONIC PROBLEM, THAT POSE(S) A LOW RISK FOR MORBIDITY/MORTALITY. The visit on the day of the encounter encompassed interpreting the data and educating the patient as to the nature of their condition, treatment options available according to their individual PMH, meds, allergies, and overall health/living conditions, as well as any potential risks or complications that may occur from a failure to adhere to, and participate in, the recommended course of therapy. The discussion included a complete verbal, and/or written explanation of the examination results, any x-rays taken, the proposed diagnosis, and outline of the treatment plan. A schedule for future care needs was also explained. The patient verbalized an understanding of the instructions at this time and agreed to be an active participant in their treatment. If the patient should think of any questions or concerns after the visit, I have encouraged the patient to call the office.?Fungal Nail Counseling:?The patient was counseled on the diagnosis, potential etiologies (including, but not limited to, environmental factors, genetic, immune deficiency), and the multiple treatment options for Onychomycosis. We discussed the risks and benefits of each option from performing no treatment, to ultraviolet light shoe treatment, to laser nail treatment, to applying topical antifungals, to taking oral antifungal medication, to surgical removal of the involved nail(s) with or without performing a matricectomy, or any combination thereof. We discussed the advantages and disadvantages of each of possible treatment and importance for adherence to all the recommended therapies for optimum success. This includes the necessity for weekly emery board self nail home debridements, and control the nail and skin environment as much as possible by only using a fresh, dry pair of shoes/socks each day, as well as keeping the skin as dry as possible through the use of sprays/powders if necessary. The patient was instructed to discard the emery board after use to prevent reinfection of the involved nail(s). We discussed the mycological and visual clinical effectiveness of topical vs oral antifungal treatments as well as each ones potential side effects and/or any patient- specific medication interactions. We discussed the reasons behind the important requirement of regular liver function testing with oral antifungal therapy for safety. Patient questions regarding use, dosage, successful outcomes, blood tests, and possible pharmaceutical interactions were reviewed and the patient verbalized that all answers were clearly understood.? * Follow Up:?prn * Images: * Sign off status: Completed true * Provider:?Paul Fox DPM Date:? 024 Generated for Apolinar hagan/Nohemy/Jerri on:?05/06/2024 04:16 PM EST History and Physical Notes * HPI (History of Present Illness) Category Sub-Category Detail Notes Category Not es Skin problems Nature: discolored Location: Left , 1st Duration: a year or more Course: improved Treatments: Topical antifungal-- ketoconazole cream Severity/Quality: mild Examination Category Sub-Category Detail Notes Category Not es Ingrown Nail INSPECTION: Reveals nail inc urvation, pain on palpation, groove hypertrophy, groove ischemia, Bilateral nail borders, TA Neurological SENSORY: neurological exa m reveals intact sensorium, pain sensation normal, vibration sensation intact, pinprick sensation is normal in the lower extremities, anesthesia, burning, tingling, B/L Dermatologic SKIN FINDINGS: Skin exam reveal s normal texture, elasticity, and tugor. There are no masses. The interspaces are clear Orthopedic MUSCLE STRENGTH: 5/5 all groups in a symmetrical fashion , B/L General Examination GENERAL APPEARANCE: pleasant , alert, well nourished, well developed, well hydrated, with good attention to hygene/body habitus, and in no acute distress ORIENTED: person,place, and ti me Vascular DP PULSES(B): 2/4, B/L PT PULSES(B): 2/4, B/L CAPILLARY FILL TIME: 3 secs. per digit. B/L TEMPERTURE GRADIENT(C): normal, B/L TROPHIC CONDITION-TEXTURE/ELASTICITY/TUR GOR/HAIR GROWTH(B): normal, B/L EDEMA(C): absent, B/L TELANGECTASIA: absent, B/L PIGMENTATION: normal, B/L Nails NAILS are: Elongated, overg rown, dystrophic, lytic, greater than 3mm thick, discolored and friable with crumbly malodorous subungual debris, TA--meidal nail border
== END 2024-04-30 07:34 | disposition home or self-care (01) ==
LOC: HO.MAMMO 07:33
PROVIDERS: PCP Internal Medicine; Visit Provider Internal Medicine
DX: Z12.31 Encounter for screening mammogram for malignant neoplasm of breast (principal)
CPT/HCPCS: 77063; 77067

== ENCOUNTER → 2024-04-30 07:45 | Outpatient (BNV) | payer BC, SELFPAY | PROVIDERS: PCP Internal Medicine; Visit Provider Internal Medicine | DX: Z12.31 Encounter for screening mammogram for malignant neoplasm of breast (principal) | CPT/HCPCS: 77063; 77067 ==

== ENCOUNTER 2024-05-08 07:03 | Outpatient (REF) | payer BC, SELFPAY ==
--- OUTSIDE RECORDS SUMMARY | 2024-05-08 07:05 | XMS_ITS ---
Author Organization [facility] Address [address] [facility] [place] [address] Care Team Providers Care Baby Counselor Name Role Phone Alfredo AKERS, Leah Gonzales Primary Care Provider Un available Paul Fox Unavailable [phone] Allergies Allergen (clinical drug ingredient) Drug/Non Drug Allergy documented on EMR Reaction Allergy Type Onset Date Status codeine Codeine itchy / rash Drug Allergy Acti ve REASON FOR VISIT Last PCP Visit: 09/2023, Skin problem Medications Medication SIG (Take, Route, Fr equency, Duration) Notes Start Date End Date Status OXcarbazepine 150 MG Oral for 90 Days Active Ketoconazole 2 % 1 application Water Technician ally Once a day for 30 days [...] 01/23/2024 Encounters Encounter Location Date Provider Diagnosis [facility] [place] [address] [place] [address] 01/23/2024 Paul Fox Skin disease L98.9 ; [...] Date Notes Ketoconazole 2 % 1 application Water Technician ally Once a day for 30 days 01/23/2024 Next Appt Details Follow Up: prn, Reason: Progress Notes * Isabel CERDAkeenanDOB: [birth year] (63 yo F)Acc No.[id number]:01/23/2024 Progress Notes Patient:?Lauren Cerda Provider:?Paul Fox DPM :1960???Age:63 Y???Sex:Female D ate:01/23/2024 Address:[address] [place] [address] , [facility] Pcp:Richar Bird Subjective: * Chief Complaints: * [...] DPM Date:? 024 Generated for Apolinar hagan/Nohemy/Jerri on:?05/08/2024 07:05 AM EST History and Physical Notes * HPI [...]
--- OUTSIDE RECORDS SUMMARY | 2024-05-08 07:06 | XMS_ITS ---
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 Generated for Printi ng/Faphyllisg/eTransmitting on:?05/08/2024 07:05 AM EST
--- OUTSIDE RECORDS SUMMARY | 2024-05-08 07:06 | XMS_ITS | Patient Health Record ---
Author Organization [facility] Bob Paezley Address [address] [place] [address] Care Team Providers Care Classified Advertising Supervisor Name Role Phone Alfredo AKERS, Leah Gonzales Primary Care Provider Un available Paul Fox Unavailable [phone] Allergies Allergen (clinical drug ingredient) Drug/Non Drug Allergy documented on EMR Reaction Allergy Type Onset Date Status codeine Codeine itchy / rash Drug Allergy Acti ve Reason For Referral Diagnosis 1 Pain in unspecified foot (M79.673) Referring Provider First Name Leah Soto Referring Provider Last Name Alfredo Referring Provider Speciality Internal M edicine [facility] [place] Referred Provider Paul Fox Referred Address [address],[place],[address], Referred Provider Specialty Podiatry Referral Priority Routine Medications Medication SIG (Take, Route, Fr equency, Duration) Notes Start Date End Date Status OXcarbazepine 150 MG Oral for 90 Days Active Ketoconazole 2 % 1 application Supply Chain Director ally Once a day for 30 days [...] 01/23/2024 Encounters Encounter [facility] Date [facility] [address] [place] [address] 01/23/2024 Paul Fox Skin disease L98.9 ; Tinea unguium B35.1 and Ingrowing nail L60.[address] [facility] [address] 10/18/2023 Paul Fox Assessments Encounter Date Diagnosis [...] Insured Coverage Start Date Coverage End Date [facility] [address] [place] [address] [id number] Jose Daniel Cerda Spouse - patient is the spouse of the insured Medical (General) History Medical History History ICD Code Anxiety asthma Back,Hip,and Knee pain covid-19 Chicken pox Surgical History Surgery Date(Month/Year) tonsillectomy childhood
[2024-05-08 11:17] LABS: Alanine Aminotransferase 24 U/L (0-31); Anion Gap 11 (12-20); Aspartate Amino Transferase 29 U/L (5-31); Blood Urea Nitrogen 18 mg/dL (9-16); Calcium 9.8 mg/dL (8.4-10.2); Carbon Dioxide 27 mmol/L (22-29); Chloride 109 mmol/L (96-108); Cholesterol 237 mg/dL (<200); Estimated Glomerular Filt Rate > 60; Glucose Fasting 78 mg/dL (60-99); HDL Cholesterol 80 mg/dL (>40); LDL Cholesterol Calculated 140 mg/dL (<100); Potassium 4.4 mmol/L (3.3-5.1); Sodium 143 mmol/L (135-145); Triglycerides 85 mg/dL (<150)
[2024-05-08 11:34] LABS: Vitamin D 25-OH Total 43.8 ng/mL (>30)
== END 2024-05-08 07:04 | disposition home or self-care (01) ==
LOC: HO.HMGCLDS 07:03
PROVIDERS: PCP Internal Medicine; Visit Provider Internal Medicine
DX: E78.5 Hyperlipidemia, unspecified (principal); G40.209 Localization-related (focal) (partial) symptomatic epilepsy and epileptic syndromes with complex partial seizures, not intractable, without status epilepticus; Z13.1 Encounter for screening for diabetes mellitus; Z78.0 Asymptomatic menopausal state
CPT/HCPCS: 36415; 80048; 80061; 82306; 84450; 84460

== ENCOUNTER 2024-05-14 13:22 | Outpatient (AMB) | payer BC, SELFPAY ==
--- OUTSIDE RECORDS SUMMARY | 2024-05-14 13:24 | XMS_ITS ---
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 Generated for Printi ng/Faphyllisg/eTransmitting on:?05/14/2024 01:24 PM EST
--- OUTSIDE RECORDS SUMMARY | 2024-05-14 13:24 | XMS_ITS ---
Author Organization [facility] Address [address] [facility] [place] [address] Care Team Providers Care Online Community Manager Name Role Phone Alfredo AKERS, Leah Gonzales Primary Care Provider Un available Paul Fox Unavailable [phone] Allergies Allergen (clinical drug ingredient) Drug/Non Drug Allergy documented on EMR Reaction Allergy Type Onset Date Status codeine Codeine itchy / rash Drug Allergy Acti ve REASON FOR VISIT Last PCP Visit: 09/2023, Skin problem Medications Medication SIG (Take, Route, Fr equency, Duration) Notes Start Date End Date Status OXcarbazepine 150 MG Oral for 90 Days Active Ketoconazole 2 % 1 application Hydro Plant Technician ally Once a day for 30 [...] 01/23/2024 Encounters Encounter Location Date Provider Diagnosis [facility] [place] [address] [place] [address] 01/23/2024 Paul Fox Skin disease L98.9 ; [...] Date Notes Ketoconazole 2 % 1 application Hydro Plant Technician ally Once a day for 30 days 01/23/2024 Next Appt Details Follow Up: prn, Reason: Progress Notes * Isabel CERDAkeenanDOB: [birth year] (63 yo F)Acc No.[id number]:01/23/2024 Progress Notes Patient:?Lauren Cerda Provider:?Paul Fox DPM :1960???Age:63 Y???Sex:Female D ate:01/23/2024 Address:[address] [place] [address] , [facility] Pcp:Richar Brid Subjective: * Chief Complaints: * ??? Last [...] DPM Date:? 024 Generated for Apolinar hagan/Nohemy/Jerri on:?05/14/2024 01:23 PM EST History and Physical Notes * [...] ORIENTED: person,place, and ti me Vascular DP PULSES (B): 2/4, B/L PT PULSES (B): 2/4, B/L CAPILLARY FILL TIME: 3 secs. per digit. B/L TEMPERTURE GRADIENT (C): normal, B/L TROPHIC CONDITION-TEXTURE/ELASTICITY/TUR GOR/HAIR GROWTH (B): normal, B/L EDEMA (C): absent, B/L TELANGECTASIA: absent, B/L PIGMENTATION: normal, B/L Nails NAILS are: Elongated, overg rown, dystrophic, lytic, greater than 3mm thick, discolored and friable with crumbly malodorous subungual debris, TA--meidal nail border
--- OUTSIDE RECORDS SUMMARY | 2024-05-14 13:24 | XMS_ITS | Patient Health Record ---
Author Organization [facility] Bob Paezley Address [address] [place] [address] Care Team Providers Care Sawyer Helper Name Role Phone Alfredo AKERS, Leah Gonzales Primary Care Provider Un available Paul Fox Unavailable [phone] Allergies Allergen (clinical drug ingredient) Drug/Non Drug Allergy documented on EMR Reaction Allergy Type Onset Date Status codeine Codeine itchy / rash Drug Allergy Acti ve Reason For Referral Diagnosis 1 Pain in unspecified foot (M79.673) Referring Provider First Name Leah Soto Referring Provider Last Name Alfredo Referring Provider Speciality Internal M edicine [facility] [place] Referred Provider Paul Fox Referred Address [address],[place],[address], Referred Provider Specialty Podiatry Referral Priority Routine Medications Medication SIG (Take, Route, Fr equency, Duration) Notes Start Date End Date Status OXcarbazepine 150 MG Oral for 90 Days Active Ketoconazole 2 % 1 application Aquatics Director ally Once a day for 30 [...] 01/23/2024 Encounters Encounter Location Date [facility] [address] [place] [address] 01/23/2024 Paul Fox Skin disease L98.9 ; Tinea unguium B35.1 and Ingrowing nail L60.[address] [facility] [address] 10/18/2023 Paul Fox Assessments Encounter Date Diagnosis [...] Insured Coverage Start Date Coverage End Date [facility] [address] [place] [address] [phone] [id number] Jose Daniel Cerda Spouse - patient is the spouse of the insured Medical (General) History Medical History History ICD Code Anxiety asthma Back,Hip,and Knee pain covid-19 Chicken pox Surgical History Surgery Date(Month/Year) tonsillectomy childhood
--- NOTE | 2024-05-14 13:46 | MHC.PC.OV ---
Vital Signs 05/14/24 13:47 Height 5 ft 4 in Weight 127 lb BMI 21.8 BP 100/60 Blood Pressure Location Lt brachial Position Sitting Pulse 61 Pulse Oximetry (%) 98 Oxygen Delivery Method Room Air Intake Visit Reasons: PE Intake Note: Pt is here today for her PE Allergies Codeine Phosphate Allergy (Mild, Uncoded 05/15/24 00:47) Itching sulfate Adverse Reaction (Mild, Uncoded 05/15/24 00:47) Itching Medication List - Last Reconciled 05/14/24 by Leah Fuentes MD albuterol sulfate 90 mcg/actuation 2 puffs inhalation Q6-8H PRN aluminum chloride 20% (Drysol Dab-O-Matic) 1 appl topical 2XW betamethasone dipropionate 0.05% 1 appl topical BID PRN 10 days betamethasone valerate 0.1% 1 appl topical BID 7 days ibuprofen 800 mg PO Q8H PRN ketoconazole 2% 1 appl topical BID melatonin 3 mg PO BEDTIME PRN oxcarbazepine mg PO Tobacco use date assessed: 05/14/24 Dental Screening Dental Screen Date: 05/14/24 Did you have a dental visit in the last 12 months?: Yes Did you have a dental problem in the last 6 months where you did not have access to dental care?: No Was dental information given to patient?: Patient has dentist HPI PE HPI Details - The patient is a 64-year-old female presenting for her physical examination. She has been following a healthy diet, and exercises regularly. - has history of Dyslipidemia: As noted on previous labs. Will order a fasting lipid panel on today's visit. - Menopausal Symptoms: Reports vaginal dryness and pruritus; currently being followed by OBGYN and was prescribed recently ketoconazole cream for antifungal treatment. - Partial Seizure Disorder: History of confusion and d?j? 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 Mullins, no further seizure episodes noted. Up-to-date with her screening mammogram done earlier this year with benign findings, and colonoscopy done 08/10/2023 with internal hemorrhoids seen, repeat again in 10 years, done by Dr. Walters. -she had a normal cervical cancer screening done as well as pelvic exam 08/24/2023 by [facility] - Has received COVID-19 , flu vaccinations, Tdap and shingles vaccine -complains of constipation, has to take MiraLax daily for her to be able to have bowel movement. Has tried taking Colace in the past which has been ineffective [facility] Medical History (Updated 05/15/24 @ 01:06 by Leah Fuentes MD) Sleeping difficulties History of seizure disorder Dyslipidemia Seborrheic dermatitis Hyperhidrosis Complex partial seizure disorder Annual visit for general adult medical examination with abnormal findings Hx of partial seizures Surgical History History of intraocular lens implant Hx of tonsillectomy Family History Mother Diabetes HTN (hypertension) Father Diabetes Sister Diabetes Mental health disorder Daughter Mental health disorder Social History Household Members: Spouse Housing: House Alcohol intake: current Alcohol intake frequency: holidays/special occasions only Patient Tobacco Use Status: Former Tobacco user Years Smoked: 15 e-Cigarette/Vaping Use: Never Used service: No Current occupational status: employed 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 1. Little interest or pleasure in doing things: not at all 2. Feeling down, depressed, or hopeless: not at all 3. Trouble falling or staying asleep, or sleeping too much: not at all 4. Feeling tired or having little energy: not at all 5. Poor appetite or overeating: not at all 6. Feeling bad about yourself - or that you are a failure or have let yourself or your family down: not at all 7. Trouble concentrating on things, such as reading the newspaper or watching television: not at all 8. Moving or speaking so slowly that other people could have noticed. Or the opposite - being so fidgety or restless that you have been moving around a lot more than usual: not at all 9. Thoughts that you would be better off or of hurting yourself in some way: not at all Total score: 0 Depression Screening Interpretation: Negative Depression Screening Done: Yes 59079 - PHQ-9 Billing: Yes Source: Developed by Drs. Abdirizak Flaherty, Marilee Borrego, Parrish Potter and colleagues, with an educational leonid from [employer]. Thrive Questionnaire Date Thrive assessed: 05/14/24 I am a: Patient What is your living situation today?: I have a steady place to live Within the past 12 months, did the food you bought not last and you didn't have the money to get more?: Sometimes True Within the past 12 months, did you worry whether your food would run out before you got money to buy more?: Sometimes True Do you have trouble paying for medicines?: No Do you have trouble getting transportation to medical appointments?: No Do you have trouble paying your heating and electricity bill?: No Do you have trouble taking care of your child, family member or friend?: No Do you have trouble with day-to-day activities such as bathing, preparing meals, shopping, managing finances, etc.?: No Are you currently unemployed and looking for a job?: No Are you interested in more education?: No THRIVE Score: 2 AUDIT C Alcohol Use Questionnaire (AUDIT-C) 1. How often do you have a drink containing alcohol?: Monthly or less 2. How many drinks containing alcohol do you have on a typical day when you are drinking?: 1 or 2 3. How often do you have six or more drinks on one occasion?: Never Total Score: 1 GERALD-7 AMB Questionnaire GERALD-7 Date GERALD - 7 assessed: 04/12/22 Source: Developed by Drs. Abdirizak Flaherty, Marilee Borrego, Parrish Potter and colleagues, with an educational leonid from [employer]. Review of Systems Const Denies body aches, Denies fatigue, Denies fever(s), Denies headache(s) and Denies weakness Eyes Denies change in vision, Denies eye discharge and Denies itchy eyes ENT Denies dizziness, Denies headache(s), Denies nasal congestion, Denies nasal discharge and Denies sore throat Card Denies chest pain, Denies lightheadedness, Denies palpitations and Denies dyspnea Resp Denies chest congestion, Denies cough, Denies dyspnea and Denies wheezing GI Reports as per HPI, Denies abdominal pain and Denies heartburn Denies hematuria, Denies urinary frequency, Denies dysuria and Denies urinary urgency Musc Reports no additional complaints Skin/Breast Denies breast pain, Denies breast mass, Denies lesions and Denies rash Neuro Denies dizziness, Denies headache(s) and Denies weakness Psych Reports no additional complaints Endo Denies fatigue, Denies polydipsia, Denies polyuria and Denies palpitations Casimiro/Lymph Reports no additional complaints Aller/Immun Denies itchy eyes, Denies seasonal rhinorrhea and Denies wheezing Physical exam (Primary Care) Vital Signs: Last Vital Signs Pulse 61 05/14/24 13:47 BP 100/60 05/14/24 13:47 Pulse Ox 98 05/14/24 13:47 Oxygen Delivery Method Room Air 05/14/24 13:47 BMI result Body Mass Index 21.8 Tobacco/Smoking Status: Tobacco use Status Tobacco use date assessed 05/14/24 05/14/24 13:49 Patient Tobacco Use Status Former Tobacco user 05/14/24 13:47 e-Cigarette/Vaping Use Never Used 05/14/24 13:47 PHQ-9: PHQ-9 Score PHQ-9: Total score 0 05/14/24 14:35 Depression Screening Interpretation: Negative Thrive Assessment: Date of Thrive Assessment Date Thrive assessed 05/14/24 05/14/24 13:47 Advance Care Planning discussion: Completed/Scanned Date of discussion: 05/14/24 Who was present: patient Forms completed: Health Care Proxy Time spent: 16-45 minutes Actual minutes spent: 2 Const General: no acute distress, alert and Physically active Nutritional Appearance: average body habitus Orientation/consciousness: patient oriented x3 HENMT Head: Yes normocephalic Ears: external ears normal, TM's normal bilaterally and EAC's normal General nose exam: Normal external nose present and No nasal discharge present Face and sinus: Yes face symmetric Mouth: Normal oral and palatal mucosa present, oropharynx normal and moist mucous membranes Eyes General: appearance normal, both eyes and all related structures Neck Neck: Yes normal visual inspection, Yes full ROM, Yes no lymphadenopathy and Yes supple Thyroid: Thyroid normal Chest Chest palpation & inspection: normal inspection of the chest and normal palpation of entire chest wall Breast/axilla palpation: normal palpation of the breasts Resp Effort & Inspection: normal respiratory effort and able to speak in complete sentences Auscultation: clear to auscultation bilaterally Cardio Rate: regular rate Rhythm: regular rhythm Heart sounds: S1 normal heart sound present and S2 normal heart sound present GI Palpation (GI): Soft to palpation, nontender, no guarding and no masses Auscultation: normal bowel sounds General: Yes no CVA tenderness and Yes deferred Back/Spine/Pelvis Back: no CVA tenderness and No back tenderness Skin General skin exam: no rashes or lesions noted Neuro General: patient oriented x3, gait normal, tone normal, moves all extremities, Normal light touch and pain sensation, no focal motor deficits and CN's II-XI intact bilaterally Extrem General: Yes no joint enlargement, Yes no clubbing, cyanosis or edema, Yes no pedal edema, Yes no calf tenderness and Yes normal gait Psych Appearance: grossly normal and well kempt Mental Status: mental status grossly normal Speech and movement: Normal speech and movement present Affect: normal affect Attitude: cooperative Thought process: Normal thought process present Thought content: Normal thought content present Results Reviewed Results Reviewed: Name: Lauren Cerda Age/Sex: 64/F : 1960 Unit#: [id number] Attend Dr: Leah Fuentes MD Re05/08/24 Status: DEP REF Location: [facility] Disch: SPEC : [id number] THEO: 05/08/24 STATUS: COMP REQ : [id number] RECD: 05/08/[address]: Leah Fuentes MD COMP: 05/08/241134 ENTERED: 05/08/[address] [facility] [address]: ORDERED: Met Prof Fast, AST, ALT, Lipid Panel, Vitamin D 25-OH Test Result Flag Reference Sodium 143 135-145 mmol/L Potassium 4.4 3.3-5.1 mmol/L CL 109 H 96-108 mmol/L CO2 27 22-29 mmol/L Gap 11 L 12-20 BUN 18 H 9-16 mg/dL Creat 0.81 0.5-1.4 mg/dL eGFR > 60 Chronic Kidney Disease: Estimated GFR < 60 mL/min/1.73m2 Severe Kidney Disease: Estimated GFR < 15 mL/min/1.73m2 FBS 78 60-99 mg/dL CA 9.8 8.4-10.2 mg/dL AST (GOT) 29 5-31 U/L ALT (GPT) 24 0-31 U/L Triglyceride 85 <150 mg/dL Desirable Triglyceride: less than 150 mg/dL Borderline High Triglyceride 150-199 mg/dL High Triglyceride: 200-499 mg/dL Very High Triglyceride: greater than or equal to 5OO mg/dL Cholesterol 237 H <200 mg/dL Desirable Cholesterol: less than 200 mg/dL Borderline High Cholesterol: 200-239 mg/dL High Cholesterol: greater than 239 mg/dL LDL Calculated 140 H <100 mg/dL Desirable LDL: less than 100 mg/dL Near Optimal/Above Optimal LDL: 110-129 mg/dL Borderline High LDL: 130-159 mg/dL High LDL: 160-189 mg/dL Very High LDL: greater than or equal to 190 mg/dL HDL 80 >40 mg/dL Desirable HDL: greater than 40 mg/dL Note: This HDL assay may give artificially low results in patients with liver disease. Vit D 25-OH Tot 43.8 >30 ng/mL Health Based Reference Values* < 20 ng/mL Deficient 20-30 ng/mL Insufficient > 30 ng/mL Sufficient Coding Level of Care Code Est Pt Prev Care 40-64y(34211) Diagnoses Annual visit for general adult medical examination with abnormal findings Z00.01 Dyslipidemia E78.5 Hyperhidrosis R61 Constipation K59.00 Sleeping difficulties G47.9 Vaginal pruritus N89.8 Advanced directives, counseling/discussion Z71.89 Additional Codes PHQ-9 - 28413 - PHQ-9 Billing: Yes ([id number]) Vital Signs *Quality* - Advance Care Planning discussion: Completed/Scanned ([id number]) Vital Signs *Quality* - Time spent: 16-45 minutes ([id number]) Assessment & Plan Assessment & Plan (1) Annual visit for general adult medical examination with abnormal findings: Code(s): Z00.01 - Encounter for general adult medical examination with abnormal findings Category: Medical Plan: Reviewed recent fasting lab results with patient.. Recommended dental visit every 6 months and regular eye exams, at least every 2 years. Continue with healthy eating habits and regular exercise. Instructed to do self-breast exam, and continue to get yearly mammogram. Sees OBGYN for her routine Pap pelvic exam which is up-to-date. Up-to-date with all her vaccinations. Up-to-date with her screening colonoscopy done earlier this year, repeat again in 10 years (2) Dyslipidemia: Code(s): E78.5 - Hyperlipidemia, unspecified Category: Medical Plan: Reviewed recent fasting lipid profile with patient with high total cholesterol and LDL cholesterol with triglycerides and HDL cholesterol within normal limits. . Continue adherence to low-cholesterol diet and regular exercise, uses a treadmill daily and walks regularly for exercise . Continue to make healthy food choices, eat more fruits, vegetables, whole grains, wild caught fish and low-fat dairy. Limit amount of meat and fried or fatty food products, as well as processed foods and fast foods. (3) Hyperhidrosis: Code(s): R61 - Generalized hyperhidrosis Category: Medical Plan: Using aluminum chloride 20% spray, refill sent (4) Constipation: Code(s): K59.00 - Constipation, unspecified Category: Medical Plan: Advised to incorporate more fruits and vegetables, fiber in diet, her that she stays well-hydrated. Advised to stop using MiraLax on a regular basis, which can cause laxative abuse. Stop taking calcium supplements for a while and see if constipation resolves. Continue with regular exercise. May try taking [id number] Senokot , to use only as needed if no bowel movement after 3 days, and advised to try going back on docusate sodium to take once a day (5) Sleeping difficulties: Code(s): G47.9 - Sleep disorder, unspecified Category: Medical Plan: Takes melatonin 3 mg at bedtime which has been helping (6) Vaginal pruritus: Code(s): N89.8 - Other specified noninflammatory disorders of vagina Category: Medical Plan: Prescribed betamethasone cream by OBGYN which she uses as needed (7) Advanced directives, counseling/discussion: Code(s): Z71.89 - Other specified counseling Plan: Initiated the conversation about Advanced Directives. Advanced Directives help patients prepare for current and future decisions about their medical treatment and place of care. Discussed with patient that it is a process where a patients current condition and prognosis are reviewed, their wishes for information regarding their illness are elicited, and likely medical dilemmas are presented and options discussed. Healthcare proxy form completed. The form can be amended as needed, reviewed yearly and make changes as needed Orders: Orders Lipid Panel 08/26/24 E78.5 - Hyperlipidemia, unspecified Medications: Refilled aluminum chloride 20% (Drysol Dab-O-Matic) 1 appl topical 2XW 60 mL 5RF ibuprofen PRN for pain 800 mg PO Q8H PRN 90 tabs 0RF pain betamethasone dipropionate 0.05% 1 appl topical BID 10 days PRN 45 grams 0RF rash
[2024-05-14 13:47] VITALS: BP 100/60; PULSE 61; O2SAT 98; BMI 21.8
== END 2024-05-14 14:37 | disposition home or self-care (01) ==
PROVIDERS: PCP Internal Medicine; Visit Provider Internal Medicine
DX: Z00.01 Encounter for general adult medical examination with abnormal findings (principal); E78.5 Hyperlipidemia, unspecified; R61 Generalized hyperhidrosis; K59.00 Constipation, unspecified; G47.9 Sleep disorder, unspecified; N89.8 Other specified noninflammatory disorders of vagina; Z71.89 Other specified counseling; Z00.00 Encounter for general adult medical examination without abnormal findings

== ENCOUNTER → 2024-05-14 13:22 | Outpatient (BNVA) | payer BC, SELFPAY | PROVIDERS: PCP Internal Medicine; Visit Provider Internal Medicine | DX: Z00.01 Encounter for general adult medical examination with abnormal findings (principal); E78.5 Hyperlipidemia, unspecified; R61 Generalized hyperhidrosis; K59.00 Constipation, unspecified; G47.9 Sleep disorder, unspecified; N89.8 Other specified noninflammatory disorders of vagina; Z71.89 Other specified counseling | CPT/HCPCS: 96127 ==

== ENCOUNTER 2024-09-09 08:26 | Outpatient (REF) | payer BC, SELFPAY ==
--- OUTSIDE RECORDS SUMMARY | 2024-09-09 08:36 | XMS_ITS ---
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 Generated for Printi ng/Faphyllisg/eTransmitting on:?09/09/2024 08:36 AM EDT
--- OUTSIDE RECORDS SUMMARY | 2024-09-09 08:36 | XMS_ITS ---
Author Organization [facility] Address [address] [facility] [address] Care Team Providers Care Centrifuge Operator Name Role Phone Alfredo AKERS, Leah Gonzales Primary Care Provider Un available Paul Fox Unavailable [phone] Allergies Allergen (clinical drug ingredient) Drug/Non Drug Allergy documented on EMR Reaction Allergy Type Onset Date Status codeine Codeine itchy / rash Drug Allergy Acti ve REASON FOR VISIT Last PCP Visit: 09/2023, Skin problem Medications Medication SIG (Take, Route, Fr equency, Duration) Notes Start Date End Date Status OXcarbazepine 150 MG Oral for 90 Days Active Ketoconazole 2 % 1 application Manager Of Housekeeping ally Once a day for 30 days [...] 01/23/2024 Encounters Encounter Location Date Provider Diagnosis [facility] [place] [address] [facility] [place] [address] 01/23/2024 Paul Fox Skin disease L98.9 ; [...] Date Notes Ketoconazole 2 % 1 application Manager Of Housekeeping ally Once a day for 30 days 01/23/2024 Next Appt Details Follow Up: prn, Reason: Progress Notes * Isabel CERDAkeenanDOB: [birth year] (63 yo F)Acc No.[id number]:01/23/2024 Progress Notes Patient:?Lauren Cerda Provider:?Paul Fox DPM :1960???Age:63 Y???Sex:Female D ate:01/23/2024 Address:[address] [place] [address] , [facility] Pcp:Richar Bird Subjective: * Chief Complaints: * [...] DPM Date:? 024 Generated for Apolinar hagan/Nohemy/Jerri on:?09/09/2024 08:36 AM EDT History and Physical Notes * HPI (History [...]
--- OUTSIDE RECORDS SUMMARY | 2024-09-09 08:36 | XMS_ITS | Patient Health Record ---
Author Organization [facility]aezley Address [address] [place] [address] Care Team Providers Care Hospital Administrator Name Role Phone Alfredo AKERS, Leah Gonzales Primary Care Provider Un available Paul Fox Unavailable [phone] Allergies Allergen (clinical drug ingredient) Drug/Non Drug Allergy documented on EMR Reaction Allergy Type Onset Date Status codeine Codeine itchy / rash Drug Allergy Acti ve Reason For Referral Diagnosis 1 Pain in unspecified foot (M79.673) Referring Provider First Name Leah Soto Referring Provider Last Name Alfredo Referring Provider Speciality Internal M edicine [facility] [place] Referred Provider Paul Fox Referred Address [address],[place],[address], Referred Provider Specialty Podiatry Referral Priority Routine Medications Medication SIG (Take, Route, Fr equency, Duration) Notes Start Date End Date Status OXcarbazepine 150 MG Oral for 90 Days Active Ketoconazole 2 % 1 application Hand Candle Dipper ally Once a day for 30 days [...] 01/23/2024 Encounters Encounter Location Date [facility] [address] [place] [address] 01/23/2024 Paul Fox Skin disease L98.9 ; Tinea unguium B35.1 and Ingrowing nail L60.0 [facility] [address] 10/18/2023 Paul Fox Assessments Encounter Date Diagnosis [...] Insured Coverage Start Date Coverage End Date [facility] [address] [place] [address] [id number] Jose Daniel Cerda Spouse - patient is the spouse of the insured Medical (General) History Medical History History ICD Code Anxiety asthma Back,Hip,and Knee pain covid-19 Chicken pox Surgical History Surgery Date(Month/Year) tonsillectomy childhood
[2024-09-09 10:36] LABS: Cholesterol 234 mg/dL (<200); HDL Cholesterol 80 mg/dL (>40); LDL Cholesterol Calculated 133 mg/dL (<100); Triglycerides 109 mg/dL (<150)
== END 2024-09-09 08:27 | disposition home or self-care (01) ==
LOC: HO.HMGCLDS 08:26
PROVIDERS: PCP Internal Medicine; Visit Provider Internal Medicine
DX: E78.5 Hyperlipidemia, unspecified (principal)
CPT/HCPCS: 36415; 80061

== ENCOUNTER 2024-12-09 08:19 | Outpatient (AMB) | payer BC, SELFPAY ==
--- NOTE | 2024-12-09 08:21 | MHC.OFFVIS ---
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 She is doing well with repeat photocomposing machine operator concerns: External dryness uses Vaseline and Replens externally. Currently not sexually active in over a year due to vaginal pain. Attempting to eat a healthy diet with calcium and vitamin D and stays active with exercise. Last pap smear; 2023, negative. Last mammogram; 2023. Colonoscopy is UTD. Denies any family history of breast, ovarian or colon cancer. [facility] Medical History Sleeping difficulties History of seizure disorder Dyslipidemia Seborrheic dermatitis Hyperhidrosis Complex partial seizure disorder Annual visit for general adult medical examination with abnormal findings Hx of partial seizures Surgical History History of intraocular lens implant Hx of tonsillectomy Family History Mother Diabetes HTN (hypertension) Father Diabetes Sister Diabetes Mental health disorder Daughter Mental health disorder Social History Household Members: Spouse Housing: House Alcohol intake: current Alcohol intake frequency: holidays/special occasions only Patient Tobacco Use Status: Former Tobacco user Years Smoked: 15 e-Cigarette/Vaping Use: Never Used service: No Current occupational status: employed 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 Sexual orientation: Straight/Heterosexual Gender identity: Female Cognitive needs: No Hearing needs: No Vision needs: No Female Reproductive History Menstrual Age of Menarche: 15 control method: none Total pregnancies: 1 Full term: 1 Date of last pap smear: 08/24/23 (negative ppap smear, negative hpv ) Date of Mammogram: 04/30/24 (bi rad 1) Review of Systems Const All systems reviewed & are unremarkable except as noted in HPI and below Reports as per HPI Eyes Reports no additional complaints ENT Reports no additional complaints Card Reports no additional complaints Resp Reports no additional complaints GI Reports as per HPI and Reports no additional complaints Reports as per HPI Musc Reports no additional complaints Skin/Breast Reports as per HPI Neuro Reports no additional complaints Psych Reports no additional complaints Endo Reports no additional complaints Casimiro/Lymph Reports no additional complaints Aller/Immun Reports no additional complaints Physical Exam Vital Signs: Last Vital Signs BP 92/60 12/09/24 08:34 BMI result Body Mass Index 21.5 Const General: cooperative, healthy appearing, no acute distress, well developed and alert Orientation/consciousness: patient oriented x3 HEENT Head: Yes normal to inspection Eyes General: appearance normal, both eyes and all related structures Neck Neck: Yes normal visual inspection Thyroid: Thyroid normal Chest Chest palpation & inspection: normal inspection of the chest and other (no puckering, dimpling, peau de orange, retraction, discharge, masses) Breast/axilla inspection: normal inspection of the breasts Breast/axilla palpation: normal palpation of the breasts Resp Effort & Inspection: normal respiratory effort GI Inspection: Yes normal to inspection Palpation (GI): Soft to palpation Rectal Exam - Female: deferred General: Yes bladder normal to palpation External Female Exam: normal external appearance and normal appearance of the urethra Speculum Exam - Vagina: normal appearance of the vagina, normal palpation, normal vaginal discharge and vagina atrophic Speculum Exam - Cervix: normal appearance of the cervix and normal palpation Bimanual exam- vagina & uterus: normal bimanual exam, normal palpation, uterine size normal, bladder normal to palpation, normal palpation and non-tender Bimanual Exam- Adnexa, other: no masses Skin General skin exam: no rashes or lesions noted Rashes: no rashes Neuro General: patient oriented x3 Cognition (Neuro): normal cognition Extrem General: Yes normal to inspection Psych Attitude: cooperative Thought process: Normal thought process present Assessment & Plan Assessment & Plan (1) Encounter for well woman exam with routine gynecological exam: Code(s): Z01.419 - Encounter for gynecological examination (general) (routine) without abnormal findings Category: Medical Plan: Discussed: Current recommendations for pap smears per ASCCP guidelines. Breast awareness, periodic self breast exams and yearly mammogram. Maintain a healthy lifestyle, well balanced diet including Calcium 1,200 mg and Vitamin D 600 IU daily, and routine exercise. Contact the office with any postmenopausal bleeding. Patient verbalizes understanding and agrees to the plan of care. She was given opportunity to ask questions and all questions were answered to the best of my ability. RTO in 1 year for annual repeat photocomposing machine operator exam. This note is constructed using voice recognition software. While every effort has been made to ensure accuracy, coiled tubing operator errors may have been included. (2) Atrophic vaginitis: Code(s): N95.2 - Postmenopausal atrophic vaginitis Plan Discussed: Option for trial of estrogen vaginal cream. Use, side effects reviewed. Discussed comment concerns with breast cancer and the use a hormones. Advised if breast lump was found to discontinue medication and have the lump evaluated immediately. Follow up in 8 weeks for evaluation of medication use. The patient expressed understanding and agreement with the plan of care. All of her questions and concerns were addressed to the best of my ability. Total time I personally spent on visit and management today: ?15 minutes. Time spent included review of pertinent office notes in the electronic health record; review of laboratory and imaging results; review of personal family medical history; performing physical exam; discussing diagnosis and plan of care with the patient; documenting the encounter in the EMR. Medications: New estradiol 0.01%(0.1mg/gram) (Estrace) Use at bedtime for two weeks, then use twice a week. 1 g vaginal 2XW 42.5 grams 0RF Coding Level of Care Code Est Pt Level 2 (22562) Est Pt Prev Care 40-64y(50312) Diagnoses Encounter for well woman exam with routine gynecological exam Z01.419 Atrophic vaginitis N95.2
--- OUTSIDE RECORDS SUMMARY | 2024-12-09 08:26 | XMS_ITS | Patient Health Record ---
Author Organization [facility] Bob Paezley Address [address] [place] [address] Care Team Providers Care Counter Pocket Trimmer Name Role Phone Alfredo AKERS, Leah Gonzales Primary Care Provider Un available Paul Fox Unavailable [phone] Allergies Allergen (clinical drug ingredient) Drug/Non Drug Allergy documented on EMR Reaction Allergy Type Onset Date Status codeine Codeine itchy / rash Drug Allergy Acti ve Reason For Referral Diagnosis 1 Pain in unspecified foot (M79.673) Referring Provider First Name Leah Soto Referring Provider Last Name Alfredo Referring Provider Speciality Internal M edicine Referred Organization [facility] Omari Referred Provider Pual Fox Referred Address [address],[place],[address], Referred Provider Specialty Podiatry Referral Priority Routine Medications Medication SIG (Take, Route, Fr equency, Duration) Notes Start Date End Date Status OXcarbazepine 150 MG Oral; Duration: 90 Days Active Ketoconazole 2 % 1 application Health Information Systems Technician ally Once a day; Duration: 30 days 01/23/2024 Active Social History Tobacco [...] 01/23/2024 Encounters Encounter Location Date Provider Diagnosis [facility] [address] [place] [address] 01/23/2024 Paul Fox Skin disease L98.9 ; [...] Insured Coverage Start Date Coverage End Date [facility] [address] [place] [address] [id number] 7 Jose Daniel Cerda Spouse - patient is the spouse of the insured Medical (General) History Medical History History ICD Code Anxiety asthma Back,Hip,and Knee pain covid-19 Chicken pox Surgical History Surgery Date(Month/Year) tonsillectomy childhood
[2024-12-09 08:34] VITALS: BP 92/60; BMI 21.5
== END 2024-12-09 09:04 | disposition home or self-care (01) ==
LOC: HO.HWS 08:19
PROVIDERS: PCP Internal Medicine; Visit Provider Advanced Practice Midwife
DX: Z01.419 Encounter for gynecological examination (general) (routine) without abnormal findings (principal); N95.2 Postmenopausal atrophic vaginitis
CPT/HCPCS: 99212; 99396; 99459

== ENCOUNTER 2025-02-03 07:38 | Outpatient (AMB) | payer BC, SELFPAY ==
--- OUTSIDE RECORDS SUMMARY | 2025-02-03 07:43 | XMS_ITS ---
Author Name [facility] Organization Unknown Care Team Organization Name Specialty Phone Email Start Date End [facility] Termed, PROVIDER Primary Care 06/05/202212/26 [facility] Guera Saldaña Primary Care 04/04/202212/26
--- OUTSIDE RECORDS SUMMARY | 2025-02-03 07:43 | XMS_ITS | Patient Health Record ---
Author Organization [facility] [place] Address [address] [facility] [place] [address] Care Team Providers Care Makeup Artistry Instructor Name Role Phone Alfredo AKERS, Leah Gonzales Primary Care Provider Un available Paul Fox Unavailable [phone] Allergies Allergen (clinical drug ingredient) Drug/Non Drug Allergy documented on EMR Reaction Allergy Type Onset Date Status codeine Codeine itchy / rash Drug Allergy Acti ve Reason For Referral No Information Medications Medication SIG (Take, Route, Fr equency, Duration) Notes Start Date End Date Status OXcarbazepine 150 MG Oral; Duration: 90 Days Active Ketoconazole 2 % 1 application Slot Ambassador ally Once a day; Duration: 30 days [...] Are you an other tobacco user? No Plan Of Treatment No Information Insurance Providers Payer Name Payer Address Payer Phone Subscriber Number Group Number Insured Name Patient Relationship to Insured Coverage Start Date Coverage End Date [facility] [address] [place] [address] [id number] Jose Daniel Cerda Spouse - patient is the spouse of the insured Medical (General) History Medical History History ICD Code Anxiety asthma Back,Hip,and Knee pain covid-19 Chicken pox Surgical History Surgery Date(Month/Year) tonsillectomy childhood
[2025-02-03 07:45] VITALS: BP 96/62
--- NOTE | 2025-02-03 07:45 | A.OFFVIS_ITS ---
Vital Signs 02/03/25 07:45 BP 96/62 Intake Visit Reasons: 8 wks HRT follow up Fish Net Maker: Fish Net Maker Present (Katia) Allergies Codeine Phosphate Allergy (Mild, Uncoded 02/03/25 07:45) Itching sulfate Adverse Reaction (Mild, Uncoded 02/03/25 07:45) Itching HPI Comments Details: Patient is here today for a follow up after initiation of vaginal Estrace therapy, she reports 80% improvement. Has some burning in small area residual of labia, uses Ivory or dove soap. Currently not intimate with partner. [facility] Medical History Psoriasis Sleeping difficulties History of seizure disorder Dyslipidemia Seborrheic dermatitis Hyperhidrosis Complex partial seizure disorder Annual visit for general adult medical examination with abnormal findings Hx of partial seizures Surgical History History of intraocular lens implant Hx of tonsillectomy Family History Mother Diabetes HTN (hypertension) Father Diabetes Sister Diabetes Mental health disorder Daughter Mental health disorder Social History Household Members: Spouse Housing: House Alcohol intake: current Alcohol intake frequency: holidays/special occasions only Patient Tobacco Use Status: Former Tobacco user Years Smoked: 15 e-Cigarette/Vaping Use: Never Used service: No Current occupational status: employed 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 Sexual orientation: Straight/Heterosexual Gender identity: Female Cognitive needs: No Hearing needs: No Vision needs: No Female Reproductive History Menstrual Age of Menarche: 15 Review of Systems Const All systems reviewed & are unremarkable except as noted in HPI and below Physical Exam Vital Signs: Last Vital Signs BP 96/62 02/03/25 07:45 Const General: cooperative, healthy appearing and no acute distress Orientation/consciousness: patient oriented x3 GI Inspection: Yes normal to inspection Palpation (GI): Soft to palpation and Other GI palpation findings present (Nontender) Rectal Exam - Female: visual inspection normal Other: Labia minora erythema with skin sloughing scattered mid section bilaterally, no erosions or lesions or evidence of Lucita. General: Yes bladder normal to palpation External Female Exam: normal appearance of the urethra Speculum Exam - Vagina: normal appearance of the vagina, normal palpation and normal vaginal discharge Speculum Exam - Cervix: normal appearance of the cervix and normal palpation Bimanual exam- vagina & uterus: normal bimanual exam, normal palpation, uterine size normal, bladder normal to palpation, normal palpation, uterine shape normal and non-tender Bimanual Exam- Adnexa, other: normal adnexae Neuro General: patient oriented x3 Assessment & Plan Assessment & Plan (1) Vulvar irritation: Code(s): N90.89 - Other specified noninflammatory disorders of vulva and perineum Plan: Omit using soaps externally consider both topical products as reviewed with the Internet today. May also opt to clean only with water for now. Recheck in [address] [facility] or p.r.n. if needed a sooner appointment. Consider biopsy if indicated. The patient expressed understanding and agreement with the plan of care. All of her questions and concerns were addressed to the best of my ability. (2) Atrophy of vagina: Code(s): N95.2 - Postmenopausal atrophic vaginitis Plan Reviewed the use of Estrace cream in other options. Continue for now biweekly. The patient expressed understanding and agreement with the plan of care. All of her questions and concerns were addressed to the best of my ability. This note is constructed using voice recognition software. While every effort has been made to ensure accuracy, forest examiner errors may have been included. Medications: Refilled estradiol 0.01%(0.1mg/gram) (Estrace) Use at bedtime for two weeks, then use twice a week. 1 g vaginal 2XW 42.5 grams 0RF Coding Level of Care Code Est Pt Level 3 (00438) Diagnoses Vulvar irritation N90.89 Atrophy of vagina N95.2
== END 2025-02-03 08:21 | disposition home or self-care (01) ==
LOC: HO.HWS 07:38
PROVIDERS: PCP Internal Medicine; Visit Provider Advanced Practice Midwife
DX: N90.89 Other specified noninflammatory disorders of vulva and perineum (principal); N95.2 Postmenopausal atrophic vaginitis
CPT/HCPCS: 99213

== ENCOUNTER 2025-03-03 08:07 | Outpatient (AMB) | payer BC, SELFPAY ==
--- NOTE | 2025-03-03 08:19 | MHC.OFFVIS ---
Vital Signs 03/03/25 08:20 Height 5 ft 4 in BP 108/58 L Blood Pressure Location Lt brachial Position Sitting Intake Visit Reasons: 4 week skin check Tandem Mill Operator Required: No Information Interpreted: non-clinical & clinical Orientation And Mobility Instructor: Orientation And Mobility Instructor Present Allergies Codeine Phosphate Allergy (Mild, Uncoded 03/03/25 08:22) Itching sulfate Adverse Reaction (Mild, Uncoded 03/03/25 08:22) Itching Medication List - Last Reconciled 03/03/25 by Viviana Hahn LPN albuterol sulfate 90 mcg/actuation 2 puffs inhalation Q6-8H PRN aluminum chloride 20% (Drysol Dab-O-Matic) 1 appl topical 2XW betamethasone dipropionate 0.05% 1 appl topical BID PRN 10 days betamethasone valerate 0.1% 1 appl topical BID 7 days estradiol 0.01%(0.1mg/gram) (Estrace) 1 g vaginal 2XW ibuprofen 800 mg PO Q8H PRN melatonin 3 mg PO BEDTIME PRN oxcarbazepine mg PO Post menopausal: Yes Patient : No HPI Comments Details: Patient is here today for a follow up on vaginal atrophy after initiating Estrace topically. She reports feeling much better at this time. She has no other concerns and would like to continue with the medication. [facility] Medical History Psoriasis Sleeping difficulties History of seizure disorder Dyslipidemia Seborrheic dermatitis Hyperhidrosis Complex partial seizure disorder Annual visit for general adult medical examination with abnormal findings Hx of partial seizures Surgical History History of intraocular lens implant Hx of tonsillectomy Family History Mother Diabetes HTN (hypertension) Father Diabetes Sister Diabetes Mental health disorder Daughter Mental health disorder Social History Household Members: Spouse Housing: House Alcohol intake: current Alcohol intake frequency: holidays/special occasions only Patient Tobacco Use Status: Former Tobacco user Years Smoked: 15 e-Cigarette/Vaping Use: Never Used Patient : No service: No Current occupational status: employed 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 Sexual orientation: Straight/Heterosexual Gender identity: Female Cognitive needs: No Hearing needs: No Vision needs: No Female Reproductive History Menstrual Age of Menarche: 15 Menopause type: natural Date of last pap smear: 08/24/23 History of abnormal pap smear: No Review of Systems Const All systems reviewed & are unremarkable except as noted in HPI and below Physical Exam Vital Signs: Last Vital Signs BP 108/58 L 03/03/25 08:20 Const General: cooperative, healthy appearing and no acute distress Orientation/consciousness: patient oriented x3 GI Inspection: Yes normal to inspection Palpation (GI): Soft to palpation and Other GI palpation findings present (Nontender) Rectal Exam - Female: visual inspection normal General: Yes bladder normal to palpation External Female Exam: normal appearance of the urethra Speculum Exam - Vagina: normal appearance of the vagina, normal palpation and normal vaginal discharge Speculum Exam - Cervix: normal appearance of the cervix and normal palpation Bimanual exam- vagina & uterus: normal bimanual exam, normal palpation, uterine size normal, bladder normal to palpation, normal palpation, uterine shape normal and non-tender Bimanual Exam- Adnexa, other: normal adnexae Neuro General: patient oriented x3 Assessment & Plan Assessment & Plan (1) Atrophic vaginitis: Code(s): N95.2 - Postmenopausal atrophic vaginitis Plan: Continue with topical and vaginal use of Estrace. Refills sent it. Continue with yearly mammograms and self-breast exam, notify office if there is any breast lump or vaginal bleeding for immediate care. The patient expressed understanding and agreement with the plan of care. All of her questions and concerns were addressed to the best of my ability. Annual exam scheduled for November 2025. (2) Irritation of vulva: Code(s): N90.89 - Other specified noninflammatory disorders of vulva and perineum Plan Reviewed medication use and tapering of doses to biweekly. The patient expressed understanding and agreement with the plan of care. All of her questions and concerns were addressed to the best of my ability. Medications: Refilled estradiol 0.01%(0.1mg/gram) (Estrace) Use at bedtime for two weeks, then use twice a week. 1 g vaginal 2XW 42.5 grams 3RF Coding Level of Care Code Est Pt Level 3 (69811) Diagnoses Atrophic vaginitis N95.2 Irritation of vulva N90.89
[2025-03-03 08:20] VITALS: BP 108/58
== END 2025-03-03 09:30 | disposition home or self-care (01) ==
LOC: HO.HWS 08:08
PROVIDERS: PCP Internal Medicine; Visit Provider Advanced Practice Midwife
DX: N95.2 Postmenopausal atrophic vaginitis (principal); N90.89 Other specified noninflammatory disorders of vulva and perineum
CPT/HCPCS: 99213

== ENCOUNTER 2025-05-13 07:25 | Outpatient (REF) | payer BC, SELFPAY ==
--- OUTSIDE RECORDS SUMMARY | 2025-05-13 07:28 | XMS_ITS | Patient Health Record ---
Author Organization [facility] Address [address] [address] Care Team Providers Care Corporate Operations Compliance Manager Name Role Phone Alfredo AKERS, Leah Gonzales Primary Care Provider Un available Paul Mckeon Unavailable [phone] Allergies Allergen (clinical drug ingredient) Drug/Non Drug Allergy documented on EMR Reaction Allergy Type Onset Date Status codeine Codeine itchy / rash Drug Allergy Acti ve Reason For Referral No Information Medications Medication SIG (Take, Route, Fr equency, Duration) Notes Start Date End Date Status OXcarbazepine 150 MG Oral; Duration: 90 Days Active Ketoconazole 2 % 1 application Organic Preparation Technician ally Once a day; Duration: 30 [...] Insured Coverage Start Date Coverage End Date [facility] [address] [place] [address] [phone] [id number] Jose Daniel eCrda Spouse - patient is the spouse of the insured Medical (General) History Medical History History ICD Code Anxiety asthma Back,Hip,and Knee pain covid-19 Chicken pox Surgical History Surgery Date(Month/Year) tonsillectomy childhood
== END 2025-05-13 07:26 | disposition home or self-care (01) ==
LOC: HO.MAMMO 07:25
PROVIDERS: PCP Internal Medicine; Visit Provider Internal Medicine
DX: Z12.31 Encounter for screening mammogram for malignant neoplasm of breast (principal)
CPT/HCPCS: 77063; 77067

== ENCOUNTER → 2025-05-13 07:30 | Outpatient (BNV) | payer BC, SELFPAY | PROVIDERS: PCP Internal Medicine; Visit Provider Radiology Body Imaging | DX: Z12.31 Encounter for screening mammogram for malignant neoplasm of breast (principal) | CPT/HCPCS: 77063; 77067 ==